=== PATIENT | male | born 1945 | race Caucasian/White ===

== ENCOUNTER 2017-06-04 13:20 | Emergency (ER) | payer MEDICARE, BC, SELFPAY | END 2017-06-04 16:37 | disposition home or self-care (01) | PROVIDERS: Emergency Provider Emergency Medicine; Family Provider Internal Medicine Pulmonary Disease; PCP Family Medicine; Visit Provider Emergency Medicine | DX: J44.1 Chronic obstructive pulmonary disease with (acute) exacerbation (principal) | CPT/HCPCS: 71020; 71046; 80053; 83880; 84484; 85025; 85610; 85730; 93005; 93010; 94640; 94644; 96374; 99058; 99285; J2930 ==

== ENCOUNTER → 2017-12-07 09:11 | Outpatient (CLI) | payer MEDICARE, BC, SELFPAY ==
[2017-12-07 10:37] LABS: Alanine Aminotransferase 48 IU/L (21-72); Albumin 4.5 g/dL (3.5-5.0); Albumin Globulin Ratio 1.8 (1.0-2.8); Alkaline Phosphatase 86 U/L (38-126); Aspartate Aminotransferase 32 IU/L (17-59); BUN Creatinine Ratio 12.5 (6-22); Bilirubin Total 0.6 mg/dL (0.2-1.3); Blood Urea Nitrogen 10 mg/dL (9-20); Carbon Dioxide 33 mmol/L (22-32); Chloride 98 mmol/L (98-107); Estimated Glomerular Filt Rate > 60.0 mL/min (>60); Globulin 2.5 g/dL (1.7-4.1); Glucose 110 mg/dL (80-110); HEMOLYSIS < 15 (0-50); Potassium 4.9 mmol/L (3.4-5.1); Sodium 141 mmol/L (137-145)
[2017-12-12 09:28] LABS: Lipoprofile NMR SEE SEPERATE REPORT
== END ==
PROVIDERS: Family Provider Student in an Organized Health Care Education/Training Program; PCP Student in an Organized Health Care Education/Training Program; Visit Provider Specialist
DX: E78.2 Mixed hyperlipidemia (principal); I10 Essential (primary) hypertension
CPT/HCPCS: 36415; 80053; 83704; 83735

== ENCOUNTER 2018-05-22 09:25 | Emergency (ER) | payer MEDICARE, BC, SELFPAY ==
[2018-05-22 09:27] VITALS: BP 161/85; PULSE 63; RESP 18; TEMP 37.2; O2SAT 97; BMI 60.3
--- NOTE | 2018-05-22 09:36 | ED.LOWEXIN ---
HPI - Extremity Injury (Lower) General Chief Complaint: Extremity Problem,Nontraumatic Stated Complaint: He Thinks he broke his right foot.. Time Seen by Provider: 05/22/18 09:28 Source: patient Mode of arrival: wheelchair Limitations: no limitations History of Present Illness HPI Narrative: Patient is a 73-year-old male. 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 Has regained all function however does have muscle weakness on the right side. 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 Is here because he has pain in his right foot. No specific trauma. He states that it started hurting 3 days ago. Spent most of the day on Tuesday in bed. Worsened yesterday. States that it hurts when he stands and walks. Cannot specifically pinpoint a location where he is having the pain but does point to the arch of his foot. Related Data Home Medications Medication Instructions Recorded Confirmed atorvastatin [Lipitor] 40 mg PO #0 08/23/12 07/19/17 clopidogrel [Plavix] 75 mg PO QDAY #0 08/23/12 07/19/17 ezetimibe [Zetia] 10 mg PO QDAY #0 08/23/12 07/19/17 hydrochlorothiazide 25 mg PO QDAY #0 08/23/12 07/19/17 carvedilol [Coreg] 25 mg PO BID #0 05/13/16 07/19/17 cholecalciferol (vitamin D3) 2,000 unit PO QDAY #0 05/13/16 07/19/17 [Vitamin D3] Previous Rx's Medication Instructions Recorded fluticasone propion-salmeterol 1 puff INH BID #3 pac 10/17/12 [Advair Diskus] prednisone 50 mg PO AMCC 5 Days #0 tab 06/04/17 zolpidem 10 mg tablet 10 mg PO HSP PRN #30 tab 05/19/18 cyclobenzaprine 10 mg PO TID PRN #12 tab 05/22/18 meloxicam [Mobic] 15 mg PO DAILY PRN #20 tab 05/22/18 Allergies Allergy/AdvReac Type Severity Reaction Status Date / Time No Known Drug Allergies Allergy Verified 07/19/17 13:59 Review of Systems Constitutional Denies fever(s) Cardiovascular Denies chest pain and Denies dyspnea Respiratory Denies dyspnea Musculoskeletal Comments: Right foot pain Integumentary/Breasts Denies rash Neurologic Comments: No change in neurologic status Hematologic/Lymphatic Denies easy bleeding and Denies easy bruising [facility] Medical History Coronary artery disease involving [place] coronary artery of pen[place]ot heart without angina pectoris (Chronic 05/13/16) Essential hypertension (Chronic 05/13/16) Moderate persistent asthma without complication (Chronic 05/13/16) Primary insomnia (Chronic 05/13/16) Pure hypercholesterolemia (Chronic 05/13/16) Allergy (Chronic 1994) Arthritis (Chronic Unknown) Asthma (Chronic 1994) BPH (benign prostatic hyperplasia) (Chronic Unknown) Carotid artery disease (Chronic 2007) Coronary artery disease (Chronic 1999) Hearing loss (Chronic Unknown) Hyperlipemia (Chronic Unknown) Hypertension (Chronic Unknown) Chickenpox (Resolved Unknown) Measles (Resolved Unknown) Mumps (Resolved 1995) Myocardial infarct (Resolved 1999) Polio (Resolved 1946) Rheumatic fever (Resolved Unknown) Social History Smoking Status: Former smoker Exam Initial Vital Signs Initial Vital Signs: Vital Signs Temperature 99.0 F 05/22/18 09:27 Pulse Rate 63 05/22/18 09:27 Respiratory Rate 18 05/22/18 09:27 Blood Pressure 161/85 H 05/22/18 09:27 Pulse Oximetry 97 05/22/18 09:27 Const General: cooperative, comfortable, well developed, well groomed and No acute distress Orientation: alert, awake and oriented x3 Cardio Pulses: dorsalis pedis present on the right Skin Other: A well-healed surgical scar over the arch of the right foot without surrounding erythema Neuro Other: Sensation intact to light touch right lower extremity Extrem Other: No specific tenderness around the right foot. Is able to flex and extend his ankle without any discomfort. Psych Appearance: grossly normal and well kempt Course Orders Ordered: ED Orders 05/22/18 09:35 XR foot RT min 3V Stat Vital Signs - 8 hr 05/22/18 09:27 Temperature 99.0 F Pulse Rate 63 Respiratory Rate 18 Blood Pressure 161/85 H Pulse Oximetry 97 MDM - Extremity Injury (Lower) Imaging Data X-ray foot: Radiologist's impression: Signed Patient: Salvatore Jacob BMR#: [id number] : 5Acct:[id number] Age/Sex: 73 / MDate of Service: 05/22/18 Loc: ED Accession Number: [id number] Procedure: XR foot RT min 3V Ordering Provider: Timur Palmer D.O. PROCEDURE: XR FOOT RT MIN 3V INDICATIONS: pain over arch had muscle transplant as a kid TECHNIQUE: 3 views of the foot were acquired. COMPARISON: [facility], , CHEST 2 VIEW, 06/04/2017, 13:36. FINDINGS: Bones: No fractures or dislocations. No suspicious bony lesions. Soft tissues: No tibiotalar joint effusion. Achilles tendon appears normal in thickness. IMPRESSION: Unremarkable right foot radiographs. No fractures. Dictated by: Parag Montana M.D. on 05/22/2018 at 8:54 Approved by: Parag Montana M.D. on 05/22/2018 at 8:55 MDM Narrative Medical decision making narrative: No fractures on the x-ray. There is no signs of infection. Patient has no change to his neurologic status. He has good DP pulses and capillary refill. He states that as he moves his ankle back in forth the symptoms seemed to improve. They are worse 1st thing in the morning. I suspect that this is either a muscle spasm or plantar fasciitis. I did discuss this with the patient. We did discuss treatment and return precautions. He will contact his primary doctor. He expressed understanding and agreement plan. Discharge Plan Departure Patient Disposition: Home Clinical Impression: Acute foot pain Qualifiers: Laterality: right Qualified Code(s): M79.671 - Pain in right foot Instructions: DI for Plantar Fasciitis Activity Restrictions/Additional Instructions: Recommend that you stretcher foot after he had been sitting for an extended period of time or 1st thing in the morning before you get up like we discussed. I do recommend that you contact her primary doctor to establish care. Take the medications as directed as needed. Return to the emergency department for any new or worsening symptoms Prescriptions: New cyclobenzaprine 10 mg tablet 10 mg PO TID PRN (Reason: muscle spasm) Qty: 12 RF: 0 meloxicam [Mobic] 15 mg tablet 15 mg PO DAILY PRN (Reason: muscle pain) Qty: 20 RF: 0 No Action atorvastatin [Lipitor] 40 MG tablet 40 mg PO Qty: 0 RF: 0 clopidogrel [Plavix] 75 MG tablet 75 mg PO QDAY Qty: 0 RF: 0 hydrochlorothiazide 25 MG tablet 25 mg PO QDAY Qty: 0 RF: 0 ezetimibe [Zetia] 10 MG tablet 10 mg PO QDAY Qty: 0 RF: 0 fluticasone propion-salmeterol [Advair Diskus] 250 MCG/50 MCG blister with device 1 puff INH BID Qty: 3 RF: 3 carvedilol [Coreg] 25 MG tablet 25 mg PO BID Qty: 0 RF: 0 cholecalciferol (vitamin D3) [Vitamin D3] 2,000 UNIT capsule 2,000 unit PO QDAY Qty: 0 RF: 0 prednisone 50 MG tablet 50 mg PO AMCC 5 Days Qty: 0 RF: 0 zolpidem [Ambien] 10 mg tablet 10 mg PO HSP PRN (Reason: insomnia) Qty: 30 RF: 5 Referrals: Farhad Estrada MD [Primary Care Provider] -
[2018-05-22 10:36] VITALS: BP 126/69; PULSE 61; RESP 15; O2SAT 97
== END 2018-05-22 10:38 | disposition home or self-care (01) ==
PROVIDERS: Emergency Provider Emergency Medicine; Family Provider Student in an Organized Health Care Education/Training Program; PCP Student in an Organized Health Care Education/Training Program
DX: M79.671 Pain in right foot (principal)
CPT/HCPCS: 73630; 99283

== ENCOUNTER → 2018-05-23 14:29 | Outpatient (CLI) | payer MEDICARE, BC, SELFPAY ==
[2018-05-23 15:08] LABS: Add Manual Diff / Slide Review NO; Basophils Absolute Auto 100 /uL (0-100); Basophils Percent Auto 1.2 % (0-2); Eosinophils Absolute Auto 1400 /uL (0-450); Hematocrit 38.8 % (41-53); Hemoglobin 13.5 g/dL (13.5-17.5); Lymphocytes Absolute Auto 1600 /uL (1100-4500); Lymphocytes Percent Auto 17.9 % (25-40); Mean Corpuscular HGB Conc 34.9 % (30-36); Mean Corpuscular Hemoglobin 30.3 PG (26-34); Monocytes Absolute Auto 1000 /uL (0-900); Monocytes Percent Auto 10.6 % (3-14); Neutrophils Absolute Auto 5000 /uL (1500-7000); Neutrophils Percent Auto 55.3 % (50-75); Platelet Count 290 X10^3/uL (150-400); Red Blood Cell Count 4.46 X10^6/uL (4.5-5.9); Red Cell Distribution Width 13.3 % (11.6-14.8); White Blood Cell Count 9.1 X10^3/uL (4.5-11.0)
[2018-05-23 15:39] LABS: C-Reactive Protein Quant 4.1 mg/dL (<1.0); Uric Acid 7.2 mg/dL (3.5-8.5)
[2018-05-23 15:40] LABS: Erythrocyte Sedimentation Rate 56 MM/HR (0-15)
[2018-05-23 15:56] LABS: Procalcitonin < 0.05 ng/mL (<0.5)
== END ==
PROVIDERS: Family Provider Student in an Organized Health Care Education/Training Program; PCP Student in an Organized Health Care Education/Training Program; Visit Provider Registered Nurse
DX: M79.671 Pain in right foot (principal); M79.89 Other specified soft tissue disorders
CPT/HCPCS: 36415; 84145; 84550; 85025; 85651; 86140

== ENCOUNTER → 2018-05-24 14:50 | Outpatient (CLI) | payer MEDICARE, BC, SELFPAY ==
--- NOTE | 2018-05-24 14:53 | DI.MRI.S_ITS ---
PROCEDURE: MR FOOT RT WO/W CON INDICATIONS: Right foot pain TECHNIQUE: Noncontrast sagittal T1 spin echo and T2 fast spin echo with fat saturation, long-axis T1 spin echo and T2 fast spin echo with fat saturation; short-axis T1 spin echo, proton density fast spin echo, and T2 fast spin echo with fat saturation through the forefoot. Post-contrast short axis, long axis, and sagittal T1 spin echo with fat saturation through the forefoot. COMPARISON: None. FINDINGS: Image quality: Excellent. Bones and joints: No suspicious osseous enhancement. Subtle marrow edema involving plantar aspect of medial cuneiform and talus is seen with no discrete fracture line that likely represent mild stress reaction. No other area of abnormal marrow signal. No fracture or dislocation. The sesamoid bones appear in expected positions, without internal edema. Mild osteoarthritic changes throughout mid foot and forefoot joints are seen. No intraosseous lesions. Soft tissues: No suspicious soft tissue enhancement. The visualized plantar foot muscles demonstrate mild heterogeneous internal fluid signals suggestive of muscle strain versus myositis. Mild intramuscular enhancement is seen. Visualized flexor and extensor tendons appear intact, without tenosynovitis. The distal insertions of the peroneus brevis and longus tendons appear intact. The principal Lisfranc ligament appears intact. No soft tissue ganglion cysts or bursal fluid collections. Sagittal images demonstrate no evidence for plantar plate tears. IMPRESSION: 1. Finding is suggestive of low-grade strain versus myositis involving plantar foot muscles. No intramuscular soft tissue mass or fluid collection. 2. Suggestion of mild stress reaction versus contusion involving plantar aspect of medial cuneiform and navicular bone. No fracture or dislocation. 3. Plantar aponeurosis is intact. Dictated by: Gucci Patiño M.D. on 05/24/2018 at 16:38 Approved by: Gucci Patiño M.D. on 05/24/2018 at 16:44
== END ==
PROVIDERS: Family Provider Student in an Organized Health Care Education/Training Program; PCP Student in an Organized Health Care Education/Training Program; Visit Provider Registered Nurse
DX: M79.671 Pain in right foot (principal); M79.89 Other specified soft tissue disorders
CPT/HCPCS: 73720; A9579

== ENCOUNTER → 2018-06-07 07:32 | Outpatient (CLI) | payer MEDICARE, BC, SELFPAY ==
[2018-06-07 09:20] LABS: Alanine Aminotransferase 33 IU/L (21-72); Albumin 3.9 g/dL (3.5-5.0); Albumin Globulin Ratio 1.5 (1.0-2.8); Alkaline Phosphatase 109 U/L (38-126); Aspartate Aminotransferase 19 IU/L (17-59); BUN Creatinine Ratio 16.3 (6-22); Bilirubin Total 0.5 mg/dL (0.2-1.3); Blood Urea Nitrogen 13 mg/dL (9-20); Calcium 9.1 mg/dL (8.4-10.2); Carbon Dioxide 30 mmol/L (22-32); Chloride 96 mmol/L (98-107); Estimated Glomerular Filt Rate > 60.0 mL/min (>60); Globulin 2.6 g/dL (1.7-4.1); Glucose 137 mg/dL (80-110); HEMOLYSIS < 15 (0-50); Magnesium 2.4 mg/dL (1.6-2.3); Potassium 3.8 mmol/L (3.4-5.1); Sodium 134 mmol/L (137-145); Total Protein 6.5 g/dL (6.3-8.2)
[2018-06-12 13:13] LABS: Lipoprofile NMR SEE SEPERATE REPORT
== END ==
PROVIDERS: Family Provider Student in an Organized Health Care Education/Training Program; PCP Student in an Organized Health Care Education/Training Program; Visit Provider Specialist
DX: E78.2 Mixed hyperlipidemia (principal); I10 Essential (primary) hypertension
CPT/HCPCS: 36415; 80053; 83704; 83735

== ENCOUNTER → 2019-03-08 13:48 | Outpatient (CLI) | payer MEDICARE, BC, SELFPAY ==
--- NOTE | 2019-03-08 13:51 | DI.US.S_ITS ---
PROCEDURE: US CAROTID DOPPLER BI INDICATIONS: CAROTID STENOSIS TECHNIQUE: Color and pulse Doppler interrogation was performed of both carotid systems, with image documentation and velocity measurements. COMPARISON: [facility], , CAROTID ARTERY DOPPLER BILAT, 09/09/2014, 13:24. [facility], , CAROTID ARTERY DOPPLER BILAT, 03/10/2016, 13:42. FINDINGS: Stenosis calculations are based on SRU (Society of Radiologists in Ultrasound) criteria. Right side: Brachial blood pressure: 141/73 mm Hg. Common carotid artery peak systolic velocity: 86 cm/sec (prior 79 cm/s). Internal carotid artery peak systolic velocity: 122 cm/sec (prior 86 cm/s). Internal carotid artery end diastolic velocity: 22 cm/sec (prior 21 cm/s). External carotid artery peak systolic velocity: 110 cm/sec (prior 105 cm/s). ICA/CCA peak systolic ratio: 1.42 (prior 1.08). Solomon scale imaging description: Moderate atherosclerotic changes are seen, including shadowing calcification. Percent internal carotid artery stenosis: Less than 50% by velocity criteria. Vertebral artery: Flow direction is antegrade. Left side: Brachial blood pressure: 141/71 mm Hg. Common carotid artery peak systolic velocity: 104 cm/sec (prior 106 cm/s). Internal carotid artery peak systolic velocity: 172 cm/sec (prior 127 cm/s). Internal carotid artery end diastolic velocity: 27 cm/sec (prior 31 cm/s). External carotid artery peak systolic velocity: 174 cm/sec (prior 115 cm/s). ICA/CCA peak systolic ratio: 1.66 (prior 1.19). Solomon scale imaging description: Moderate atherosclerotic changes can be seen. Shadowing calcification can also be seen. Percent internal carotid artery stenosis: 50-69% by velocity criteria Vertebral artery: Flow direction is antegrade. IMPRESSION: By velocity criteria, there is a moderate stenosis (between 50 and 69% stenosis) within the left proximal internal carotid artery. The true degree of stenosis is felt most likely to be at the lower end of this range. The estimated degree of stenosis has progressed compared to 2017. Dictated by: Valerio Reid M.D. on 03/08/2019 at 16:11 Approved by: Valerio Reid M.D. on 03/08/2019 at 16:14
== END ==
PROVIDERS: Family Provider Student in an Organized Health Care Education/Training Program; PCP Student in an Organized Health Care Education/Training Program; Visit Provider Specialist
DX: I65.23 Occlusion and stenosis of bilateral carotid arteries (principal); Z87.891 Personal history of nicotine dependence; Z98.890 Other specified postprocedural states
CPT/HCPCS: 93880

== ENCOUNTER → 2019-03-09 07:22 | Outpatient (CLI) | payer MEDICARE, BC, SELFPAY ==
[2019-03-09 08:43] LABS: Alanine Aminotransferase 22 IU/L (<50); Albumin 4.1 g/dL (3.5-5.0); Albumin Globulin Ratio 1.6 (1.0-2.8); Alkaline Phosphatase 106 U/L (38-126); Aspartate Aminotransferase 27 IU/L (17-59); BUN Creatinine Ratio 16.3 (6-22); Bilirubin Total 0.5 mg/dL (0.2-1.3); Blood Urea Nitrogen 13 mg/dL (9-20); Calcium 9.5 mg/dL (8.4-10.2); Carbon Dioxide 28 mmol/L (22-32); Chloride 95 mmol/L (98-107); Estimated Glomerular Filt Rate > 60.0 mL/min (>60); Globulin 2.5 g/dL (1.7-4.1); Glucose 102 mg/dL (80-110); HEMOLYSIS < 15 (0-50); Magnesium 2.3 mg/dL (1.6-2.3); Potassium 4.3 mmol/L (3.4-5.1); Sodium 132 mmol/L (137-145); Total Protein 6.6 g/dL (6.3-8.2)
[2019-03-12 11:23] LABS: Lipoprofile NMR SEE SEPERATE REPORT
== END ==
PROVIDERS: Family Provider Student in an Organized Health Care Education/Training Program; PCP Student in an Organized Health Care Education/Training Program; Visit Provider Specialist
DX: E78.2 Mixed hyperlipidemia (principal); I10 Essential (primary) hypertension
CPT/HCPCS: 36415; 80053; 83704; 83735

== ENCOUNTER → 2020-02-21 14:48 | Outpatient (CLI) | payer MEDICARE, BC, SELFPAY ==
--- NOTE | 2020-02-21 14:51 | DI.RAD.S_ITS ---
PROCEDURE: XR HAND LT 2V INDICATIONS: Evaluate probable inflammatory arthropathy TECHNIQUE: To views of the hand(s) acquired. COMPARISON: None. FINDINGS: Bones: No fractures or dislocations. Carpal bones are normally aligned. No suspicious bony lesions. Severe OA at the 1st carpometacarpal joint, and mild OA at the triscaphe joint and multiple interphalangeal joints. Soft tissues: No suspicious soft tissue calcifications. Mild generalized soft tissue swelling. IMPRESSION: Severe osteoarthritic changes at the 1st carpometacarpal joint. No bony erosion or periarticular osteopenia. Dictated by: Lavern Sung M.D. on 02/21/2020 at 17:08 Approved by: Lavern Sung M.D. on 02/21/2020 at 17:09
--- NOTE | 2020-02-21 14:51 | DI.RAD.S_ITS ---
PROCEDURE: XR WRIST LT 2V INDICATIONS: Evaluate probable inflammatory arthropathy TECHNIQUE: 2 views of the wrist were acquired. COMPARISON: None. FINDINGS: Bones: No fractures or dislocations. No suspicious bony lesions. There is severe foot carpometacarpal joint degeneration. Mild degeneration of the radiocarpal joint and triscaphe joint. No bony erosion or periarticular osteopenia. Soft tissues: No suspicious soft tissue calcifications. IMPRESSION: Severe osteoarthritic changes at the 1st carpometacarpal joint. No bony erosion or periarticular osteopenia. Dictated by: Lavern Sung M.D. on 02/21/2020 at 17:09 Approved by: Lavern Sung M.D. on 02/21/2020 at 17:11
[2020-02-21 15:42] LABS: Add Manual Diff / Slide Review NO; Basophils Absolute Auto 200 /uL (0-100); Basophils Percent Auto 1.5 % (0-2); Eosinophils Absolute Auto 2300 /uL (0-450); Eosinophils Percent Auto 21.3 % (2-4); Hematocrit 32.9 % (41-53); Hemoglobin 11.6 g/dL (13.5-17.5); Lymphocytes Absolute Auto 1200 /uL (1100-4500); Lymphocytes Percent Auto 11.3 % (25-40); Mean Corpuscular HGB Conc 35.1 % (30-36); Mean Corpuscular Hemoglobin 29.3 PG (26-34); Mean Corpuscular Volume 83.4 fL (80-100); Monocytes Absolute Auto 700 /uL (0-900); Monocytes Percent Auto 6.7 % (3-14); Neutrophils Absolute Auto 6400 /uL (1500-7000); Neutrophils Percent Auto 59.2 % (50-75); Platelet Count 463 X10^3/uL (150-400); Red Blood Cell Count 3.94 X10^6/uL (4.5-5.9); Red Cell Distribution Width 12.9 % (11.6-14.8); White Blood Cell Count 10.8 X10^3/uL (4.5-11.0)
[2020-02-21 16:15] LABS: Alanine Aminotransferase 16 IU/L (<50); Albumin 4.2 g/dL (3.5-5.0); Albumin Globulin Ratio 1.4 (1.0-2.8); Alkaline Phosphatase 139 U/L (38-126); Aspartate Aminotransferase 27 IU/L (17-59); BUN Creatinine Ratio 11.5 (6-22); Bilirubin Total 0.2 mg/dL (0.2-1.3); Blood Urea Nitrogen 6 mg/dL (9-20); C-Reactive Protein Quant 1.2 mg/dL (<1.0); Calcium 9.3 mg/dL (8.4-10.2); Carbon Dioxide 28 mmol/L (22-32); Chloride 89 mmol/L (98-107); Estimated Glomerular Filt Rate > 60.0 mL/min (>60); Glucose 117 mg/dL (80-110); HEMOLYSIS < 15 (0-50); Potassium 3.9 mmol/L (3.4-5.1); Sodium 123 mmol/L (137-145); Total Protein 7.2 g/dL (6.3-8.2)
[2020-02-21 16:17] LABS: Rheumatoid Factor < 8.6 IU/mL (<12.0)
[2020-02-21 17:13] LABS: Erythrocyte Sedimentation Rate 52 MM/HR (0-15)
[2020-02-23 15:11] LABS: ANA Screen, IFA Negative (.)
== END ==
PROVIDERS: Family Provider Student in an Organized Health Care Education/Training Program; PCP Student in an Organized Health Care Education/Training Program; Referring Provider Student in an Organized Health Care Education/Training Program; Visit Provider Student in an Organized Health Care Education/Training Program
DX: I10 Essential (primary) hypertension (principal); E78.00 Pure hypercholesterolemia, unspecified; I25.10 Atherosclerotic heart disease of native coronary artery without angina pectoris; Z79.899 Other long term (current) drug therapy; M06.4 Inflammatory polyarthropathy
CPT/HCPCS: 36415; 73100; 73120; 80053; 85025; 85651; 86038; 86140; 86430

== ENCOUNTER → 2020-03-11 10:09 | Outpatient (CLI) | payer MEDICARE, BC, SELFPAY ==
[2020-03-11 11:07] LABS: Hematocrit 34.6 % (41-53); Hemoglobin 11.3 g/dL (13.5-17.5); Mean Corpuscular HGB Conc 32.5 % (30-36); Mean Corpuscular Hemoglobin 28.8 PG (26-34); Mean Corpuscular Volume 88.5 fL (80-100); Platelet Count 308 X10^3/uL (150-400); Red Blood Cell Count 3.91 X10^6/uL (4.5-5.9); Red Cell Distribution Width 15.5 % (11.6-14.8); White Blood Cell Count 9.3 X10^3/uL (4.5-11.0)
[2020-03-11 11:44] LABS: BUN Creatinine Ratio 10.8 (6-22); Blood Urea Nitrogen 7 mg/dL (9-20); Calcium 8.9 mg/dL (8.4-10.2); Carbon Dioxide 26 mmol/L (22-32); Chloride 99 mmol/L (98-107); Creatine Kinase 71 U/L (55-170); Estimated Glomerular Filt Rate > 60.0 mL/min (>60); Glucose 157 mg/dL (80-110); HEMOLYSIS < 15 (0-50); Potassium 3.9 mmol/L (3.4-5.1); Sodium 130 mmol/L (137-145)
[2020-03-11 11:55] LABS: Troponin I < 0.012 ng/mL (0.01-0.034)
[2020-03-11 12:05] LABS: Neutrophils Absolute Manual 6324 /uL (3000-5900); Total Cells Counted 100
[2020-03-11 12:08] LABS: Ovalocytes 1+
[2020-03-11 12:09] LABS: Sodium Urine Random 61 mmol/L (30-90)
[2020-03-11 12:10] LABS: Burr Cells 1+
[2020-03-11 12:12] LABS: Anisocytosis 1+; Platelet Estimate Adequate on smear
[2020-03-12 15:28] LABS: Osmolality Urine 275 mOsmol/kg (.); Osmolality, Serum 278 mOsmol/kg (280-301)
== END ==
PROVIDERS: Family Provider Student in an Organized Health Care Education/Training Program; PCP Student in an Organized Health Care Education/Training Program; Referring Provider Student in an Organized Health Care Education/Training Program; Visit Provider Student in an Organized Health Care Education/Training Program
DX: D72.10 Eosinophilia, unspecified (principal); E87.1 Hypo-osmolality and hyponatremia
CPT/HCPCS: 36415; 80048; 82550; 83930; 83935; 84300; 84484; 85025

== ENCOUNTER → 2020-05-20 07:11 | Outpatient (CLI) | payer MEDICARE, BC, SELFPAY ==
[2020-05-20 08:32] LABS: Alanine Aminotransferase 14 IU/L (<50); Albumin 4.1 g/dL (3.5-5.0); Albumin Globulin Ratio 1.4 (1.0-2.8); Alkaline Phosphatase 117 U/L (38-126); Aspartate Aminotransferase 20 IU/L (17-59); BUN Creatinine Ratio 13.8 (6-22); Bilirubin Total 0.2 mg/dL (0.2-1.3); Blood Urea Nitrogen 9 mg/dL (9-20); Calcium 9.4 mg/dL (8.4-10.2); Carbon Dioxide 26 mmol/L (22-32); Chloride 100 mmol/L (98-107); Estimated Glomerular Filt Rate > 60.0 mL/min (>60); Globulin 2.9 g/dL (1.7-4.1); Glucose 114 mg/dL (80-110); HEMOLYSIS < 15 (0-50); Magnesium 2.2 mg/dL (1.6-2.3); Potassium 4.2 mmol/L (3.4-5.1); Sodium 134 mmol/L (137-145)
[2020-05-22 07:56] LABS: Cholesterol, Total 112 mg/dL (100-199); HDL-Cholesterol 53 mg/dL (>39); HDL-Particle (Total) 31.1 umol/L (>=30.5); Historical Reading Comment: (.); LDL Particle 400 nmol/L (<1000); LDL Size 20.8 nm (>20.5); LDL-Cholsterol 45 mg/dL (0-99); LP-IR Score 29 (<=45); Small LDL- Particle <90 nmol/L (<=527); Triglycerides 68 mg/dL (0-149)
== END ==
PROVIDERS: Family Provider Student in an Organized Health Care Education/Training Program; PCP Student in an Organized Health Care Education/Training Program; Referring Provider Specialist; Visit Provider Specialist
DX: I10 Essential (primary) hypertension (principal); E78.2 Mixed hyperlipidemia
CPT/HCPCS: 36415; 80053; 80061; 83704; 83735

== ENCOUNTER → 2020-06-02 13:26 | Outpatient (CLI) | payer MEDICARE, BC, SELFPAY ==
--- NOTE | 2020-06-02 13:28 | DI.ECHO.S_ITS ---
[place] [facility]---------+ [facility] +---------+ : : [address] : [place] [address] : : : : [id number] : : : : Phone: [phone]+ Echocardiogram Report + + :Name: AGUILAR WHITLEY Study Date: 06/02/2020 Height: 67 in : :[facility] ReadingLocation: Weight: 175 lb : : Gender: Male BSA: 1.9 m2 : :: 1945 Age: 75 yrs BP: 157/82 mmHg: :Reason For Study: Cardiomyopathy : :Ordering Physician: Art : :Whitney Soler Performed By: Nehemias Venegas : :Referring: ART SOLER : + + Interpretation Summary Left ventricular systolic function appears normal with an estimated ejection fraction of 60 to 65% without any focal wall motion abnormality. Left ventricular size and wall thickness appear normal. While diastolic function cannot be accurately assessed, there is no compelling evidence for increased filling pressures. The right ventricle appears normal. Right ventricular systolic pressure cannot be estimated but CVP is likely around 3 mmHg. The left atrium is mildly enlarged. There is mild aortic valve sclerosis without stenosis but no significant valvular abnormality. The ascending aorta is mildly enlarged. Procedure: A two-dimensional transthoracic echocardiogram with color flow and Doppler was performed. The study quality was technically adequate. There is no prior echocardiogram noted for this patient. The patient was in sinus rhythm with heart rates between 51-55 bpm during the exam. Left Ventricle: The left ventricle appears normal in size, wall thickness, and systolic function without any focal wall motion abnormalities. The estimated left ventricular end diastolic volume is 78 ml. The ejection fraction is estimated to be 60-65%. Diastolic function could not be accurately assessed due to contradictory data. Right Ventricle: The right ventricle is normal in size and function. Atria: The left atrium is mildly dilated. Right atrial size is normal. There is no Doppler evidence for an interatrial shunt. Mitral Valve: There is mild mitral annular calcification. The mitral valve leaflets appear mildly thickened, but open well. There is trace mitral regurgitation. Aortic Valve: The aortic valve is trileaflet. There is mild aortic valve sclerosis. The aortic valve is mildly calcified. There is discrete nodular thickening of the non- coronary cusp. There is minimally reduced leaflet mobility. There is no aortic valve stenosis. No aortic regurgitation is present. Tricuspid Valve: The tricuspid valve is normal in structure and function. There is a trace or physiologic amount of tricuspid regurgitation. Pulmonary artery pressures cannot be estimated because of the lack of a measurable TR jet velocity but the IVC suggests a CVP of around 3 mmHg. Pulmonic Valve: The pulmonic valve is normal in structure and function. There is no pulmonic valvular regurgitation. Great Vessels: The aortic root is normal size. The ascending aorta is mildly enlarged. The IVC is of normal diameter and collapses greater than 50% with a sniff. This suggests a low right atrial pressure of 3 mm Hg. Pericardium/ Pleura There is no pericardial effusion. There is no pleural effusion. MMode/2D Measurements & Calculations LVIDd: 5.0 cm LVOT diam: 2.3 cm LVIDs: 3.4 cm Ao root diam: 3.6 cm FS: 31.3 % asc Aorta Diam: 3.8 cm IVSd: 1.0 cm LVPWd: 0.93 cm LV rubio. diameter/BSA (cm/m^2): 2.6 LV sys. diameter/BSA (cm/m^2): 1.8 LA A2 area: 20.9 cm2 RA area: 17.9 cm2 LA A4 area: 22.5 cm2 IVC diam: 2.0 cm LA length (vol): 5.6 cm LA vol: 70.9 ml LA vol index: 37.1 ml/m2 TAPSE: 2.9 cm Doppler Measurements & Calculations Ao V2 max: 184.5 cm/sec LVOT Max Mane: 104.6 cm/sec Ao V2 mean: 123.6 cm/sec LV V1 max P.4 mmHg Ao max P.6 mmHg LV V1 VTI: 27.0 cm Ao mean P.9 mmHg KATHARINE(I,D): 2.7 cm2 Ao V2 VTI: 43.9 cm KATHARINE(V,D): 2.4 cm2 sev ratio: 0.62 KATHARINE indexed to BSA (cm^2/m^2): 1.4 MV E max mane: 72.1 cm/sec PA V2 max: 108.5 cm/sec MV A max mane: 78.4 cm/sec PA V2 mean: 80.1 cm/sec MV E/A: 0.92 PA mean P.8 mmHg Med Peak E' Mane: 5.8 cm/sec PA pr(Accel): 33.3 mmHg E/E' med: 12.4 Lat Peak E' Mane: 9.4 cm/sec E/E' lat: 7.7 E/e' average: 10.1 MV dec time: 0.22 sec SV(LVOT): 116.5 ml Reading Physician:10:02 AM
== END ==
PROVIDERS: Family Provider Student in an Organized Health Care Education/Training Program; PCP Student in an Organized Health Care Education/Training Program; Referring Provider Specialist; Visit Provider Specialist
DX: I77.89 Other specified disorders of arteries and arterioles (principal); I35.8 Other nonrheumatic aortic valve disorders; I42.9 Cardiomyopathy, unspecified; Z91.89 Other specified personal risk factors, not elsewhere classified
CPT/HCPCS: 93306

== ENCOUNTER 2020-07-05 02:01 | Observation (INO) | payer MEDICARE, BC, SELFPAY ==
--- NOTE | 2020-07-05 02:02 | ED_ITS ---
HPI - Altered Mental Status General Chief Complaint: Altered Mental Status Stated Complaint: Confused Time Seen by Provider: 07/05/20 02:02 Source: patient and EMS Mode of arrival: EMS Limitations: altered mental status History of Present Illness HPI narrative: 75-year-old male former smoker with history of COPD, coronary artery disease, hypertension, asthma presents by EMS for confusion and altered mental status. Patient apparently had a good day yesterday was in his normal state of health even when he went to bed at about 8:30 p.m.. His states that she woke up at about 2 or 3 this morning and found him acting ?goofy? and he was slurring his words and not making sense. EMS was activated he was broug ht in for evaluation. Given the time frame and presentation he was not activated as a code stroke. He denies any change in medications or recent injury or trauma. Related Data Home Medications Medication Instructions Recorded Confirmed atorvastatin [Lipitor] 40 mg PO #0 08/23/12 02/21/20 clopidogrel [Plavix] 75 mg PO QDAY #0 08/23/12 02/21/20 ezetimibe [Zetia] 10 mg PO QDAY #0 08/23/12 02/21/20 amlodipine 10 mg tablet 10 mg PO DAILY 11/01/18 02/21/20 aspirin 81 mg tablet,delayed 81 mg PO DAILY 11/01/18 02/21/20 release beclomethasone dipropionate 40 1 puff INHALATION BID 11/01/18 02/21/20 mcg/actuation HFA breath activated aerosol fluticasone 250 mcg-salmeterol 50 1 inhalation INHALATION BID 11/01/18 02/21/20 mcg/dose blistr powdr for inhalation losartan 100 mg tablet 100 mg PO DAILY 11/01/18 02/21/20 metoprolol tartrate 100 mg tablet 100 mg PO BID tab 03/20/19 02/21/20 Previous Rx's Medication Instructions Recorded montelukast 10 mg tablet 10 mg PO QPM #90 tab 03/04/20 zolpidem 10 mg tablet 10 mg PO BEDTIME PRN #30 tab 03/25/20 Allergies Allergy/AdvReac Type Severity Reaction Status Date / Time hydrochlorothiazide AdvReac Mild Hyponatremi Verified 03/14/20 11:52 a Review of Systems Constitutional Constitutional: Denies chills, Denies fatigue, Denies fever(s), Denies frequent falls, Denies lethargy and Denies weakness Eyes Eyes: Denies change in vision, Denies eye discharge, Denies irritation and Denies loss of vision ENT Ears, Nose, Mouth, and Throat: Denies change in voice, Denies dizziness, Denies neck pain, Denies sore throat and Denies throat swelling Cardiovascular Cardiovascular: Denies chest pain, Denies irregular heart rhythm, Denies lightheadedness, Denies palpitations, Denies dyspnea, Denies dyspnea on exertion and Denies orthopnea Respiratory Respiratory: Denies cough, Denies dyspnea, Denies dyspnea on exertion and Denies wheezing Gastrointestinal Gastrointestinal: Denies abdominal pain, Denies change in bowel habits, Denies diarrhea, Denies nausea and Denies vomiting Musculoskeletal Musculoskeletal: Denies neck pain and Denies numbness Integumentary/Breasts Skin/Breast: Denies pruritus, Denies erythema, Denies rash and Denies wounds Neurologic Neurologic: Denies behavioral changes, Denies confusion, Denies dizziness, Denies frequent falls, Denies loss of vision, Denies numbness and Denies weakness Psychiatric Psychiatric: Denies anxiety, Denies behavioral changes, Denies confusion, Denies depression, Denies homicidal ideation and Denies suicidal ideation Endocrine Endocrine: Denies fatigue, Denies flushing and Denies palpitations Hematologic/Lymphatic Hematologic/Lymphatic: Denies easy bruising Allergic/Immunologic Allergic/Immunologic: Denies urticaria, Denies throat swelling and Denies wheezing Patient History Medical History (Updated 07/05/20 @ 04:21 by Kiran Roldan DO) Allergy (1994) Arthritis (Unknown) Asthma (1994) BPH (benign prostatic hyperplasia) (Unknown) Carotid artery disease (2007) Chickenpox (Unknown) Coronary artery disease (1999) Coronary artery disease involving minto coronary artery of minto heart without angina pectoris (05/13/16) Essential hypertension (05/13/16) Hearing loss (Unknown) Hyperlipemia (Unknown) Hypertension (Unknown) Measles (Unknown) Moderate persistent asthma without complication (05/13/16) Mumps (1995) Myocardial infarct (1999) Polio (1947) Primary insomnia (05/13/16) Pure hypercholesterolemia (05/13/16) Rheumatic fever (Unknown) Surgical History H/O esophagogastroduodenoscopy (2013) History of angioplasty History of angioplasty History of angioplasty Family History Father Hypertension Mother Hyperlipidemia Sister Age: 77 Hyperlipidemia Social History Smoking Status: Former smoker alcohol intake: never substance use type: does not use Smoking Status: Former smoker alcohol intake frequency: 0-2 drinks per day Substance Use Type: does not use Exam Narrative Exam Narrative: GENERAL: [75] year old patient appears stated age. Well- nourished, well-developed patient, in mild distress. He is confused, delivered and sluggish in his responses which are largely accurate. HEAD: Atraumatic. Normocephalic. EYES: Pupils equal round and reactive. Extraocular motions intact. No scleral icterus. No injection or drainage. ENT: Nose without bleeding, purulent drainage. Throat without erythema, tonsillar hypertrophy or exudate. Airway patent. NECK: Trachea midline. Non tender CARDIOVASCULAR: Regular rate and rhythm without murmurs, gallops, or rubs. RESPIRATORY: Clear to auscultation. Breath sounds equal bilaterally. No wheezes, rales, or rhonchi. GASTROINTESTINAL: Abdomen soft, non-tender, nondistended. EXTREMITIES: No edema or joint tenderness. BACK: Nontender without deformity or crepitance. No flank tenderness. NEURO: AOx3. SKIN: No rash or erythema of visible areas Initial Vital Signs Initial Vital Signs: Vital Signs Temperature 97.1 F L 07/05/20 02:07 Pulse Rate 60 07/05/20 02:07 Respiratory Rate 16 07/05/20 02:07 Blood Pressure 150/71 H 07/05/20 02:07 Pulse Oximetry 97 07/05/20 02:07 Scores NIH Stroke Scale Level of Conciousness: Alert, keenly responsive Ask month/age: Answers one question correctly, intubated follow commands Open/close eyes, close hand: Performs both tasks correctly Best gaze horizontal: Normal Visual neal: No visual loss Facial palsy: Minor paralysis, flattened nasolabial fold, asymmetry on smiling Left arm drift: No drift for full 10 sec Right arm drift: No drift for full 10 sec Left leg drift: No drift for full 5 sec Right leg drift: No drift for full 5 sec Limb ataxia: Present in one limb Sensory on face/arms/legs: Normal, no sensory loss Best language: No aphasia, normal Dysarthria: Mild to mod,some slurring Extinction or inattention: No abnormality Total NIH Stroke scale score: 4 Course Course Course Narrative: 0420 - at the bedside, he is doing much better, speech has cleared, no facial weakness, patient has full coordination of upper extremitie s. Patient will require hospitalization for further evaluation and stabilization of his condition Orders Ordered: ED Orders 07/05/20 01:50 Complete Blood Count AUTO DIFF Stat Comprehensive Metabolic Panel Stat Lipase Stat Magnesium Stat NT-proBNP (BNP-Adult 18+) Stat Prothrombin Time INR Stat Troponin & CK Cardiac Panel Stat 07/05/20 02:04 CT head/brain wo con Stat XR chest 1V Stat COVID19 - ADMIT (RETAIL LOSS PREVENTION OFFICER swab/PCR) Stat Urinalysis and Microscopic Stat 07/05/20 02:05 EKG-12 Lead Stat 07/05/20 02:25 Lactate (Lactic Acid) Stat 07/05/20 02:35 Blood Culture Stat Sodium Chloride (Normal Saline 0.9%) 1,000 mls @ 125 mls/hr IV CONT JULIAN Vital Signs Vital signs: Vital Signs - 8 hr 07/05/20 02:07 07/05/20 03:00 Temperature 97.1 F L Pulse Rate 60 60 Respiratory Rate 16 18 Blood Pressure 150/71 H 150/71 H Pulse Oximetry 97 96 MDM - Altered Mental Status Lab Data Result diagrams: 07/05/20 01:50 07/05/20 01:50 Labs: Lab Results 07/05/20 07/05/20 07/05/20 Range/Units 01:50 01:50 01:50 WBC 7.5 (4.5-11.0) X10^3/uL RBC 4.03 L (4.5-5.9) X10^6/uL Hgb 10.8 L (13.5-17.5) g/dL Hct 33.5 L (41-53) % MCV 83.3 (80-100) fL MCH 26.9 (26-34) PG MCHC 32.3 (30-36) % RDW 14.5 (11.6-14.8) % Plt Count 343 (150-400) X10^3/uL Neut % (Auto) 59.6 (50-75) % Lymph % (Auto) 17.8 L (25-40) % [place] % (Auto) 8.5 (3-14) % Eos % (Auto) 12.9 H (2-4) % Baso % (Auto) 1.2 (0-2) % Neut # (Auto) 4500 (4490-1837) /uL Lymph # (Auto) 1300 (8538-3140) /uL [place] # (Auto) 600 (0-900) /uL Eos # (Auto) 1000 H (0-450) /uL Baso # (Auto) 100 (0-100) /uL PT 11.6 (10.1-12.7) SECONDS INR 1.0 (0.9-1.3) Sodium 129 L (137-145) mmol/L Potassium 4.5 (3.4-5.1) mmol/L Chloride 96 L (98-107) mmol/L Carbon Dioxide 24 (22-32) mmol/L BUN 8 L (9-20) mg/dL Creatinine 0.67 (0.66-1.25) mg/dL Estimated GFR > 60.0 (>60) mL/min BUN/Creatinine Ratio 11.9 (6-22) Glucose 136 H (80-110) mg/dL Lactate (0.7-2.1) mmol/L Calcium 9.0 (8.4-10.2) mg/dL Magnesium (1.6-2.3) mg/dL Total Bilirubin 0.3 (0.2-1.3) mg/dL AST 29 (17-59) IU/L ALT 15 (<50) IU/L Alkaline Phosphatase 125 (38-126) U/L Total Creatine Kinase (55-170) U/L CK-MB (CK-2) (<2.37) ng/mL CK-MB (CK-2) Rel Index (1.5-5.0) % Troponin I (0.01-0.034) ng/mL NT-Pro-B Natriuret Pep (<450) pg/mL Total Protein 6.7 (6.3-8.2) g/dL Albumin 4.0 (3.5-5.0) g/dL Globulin 2.7 (1.7-4.1) g/dL Albumin/Globulin Ratio 1.5 (1.0-2.8) Lipase (23-300) U/L 07/05/20 07/05/20 Range/Units 01:50 02:25 WBC (4.5-11.0) X10^3/uL RBC (4.5-5.9) X10^6/uL Hgb (13.5-17.5) g/dL Hct (41-53) % MCV (80-100) fL MCH (26-34) PG MCHC (30-36) % RDW (11.6-14.8) % Plt Count (150-400) X10^3/uL Neut % (Auto) (50-75) % Lymph % (Auto) (25-40) % [place] % (Auto) (3-14) % Eos % (Auto) (2-4) % Baso % (Auto) (0-2) % Neut # (Auto) (2328-4715) /uL Lymph # (Auto) (5633-1114) /uL [place] # (Auto) (0-900) /uL Eos # (Auto) (0-450) /uL Baso # (Auto) (0-100) /uL PT (10.1-12.7) SECONDS INR (0.9-1.3) Sodium (137-145) mmol/L Potassium (3.4-5.1) mmol/L Chloride (98-107) mmol/L Carbon Dioxide (22-32) mmol/L BUN (9-20) mg/dL Creatinine (0.66-1.25) mg/dL Estimated GFR (>60) mL/min BUN/Creatinine Ratio (6-22) Glucose (80-110) mg/dL Lactate 1.3 (0.7-2.1) mmol/L Calcium (8.4-10.2) mg/dL Magnesium 1.8 (1.6-2.3) mg/dL Total Bilirubin (0.2-1.3) mg/dL AST (17-59) IU/L ALT (<50) IU/L Alkaline Phosphatase (38-126) U/L Total Creatine Kinase 111 (55-170) U/L CK-MB (CK-2) 2.09 (<2.37) ng/mL CK-MB (CK-2) Rel Index 1.9 (1.5-5.0) % Troponin I < 0.012 (0.01-0.034) ng/mL NT-Pro-B Natriuret Pep 136 (<450) pg/mL Total Protein (6.3-8.2) g/dL Albumin (3.5-5.0) g/dL Globulin (1.7-4.1) g/dL Albumin/Globulin Ratio (1.0-2.8) Lipase 237 (23-300) U/L Imaging Data CT scan - head: Radiologist's Impression: No bleed or stroke Discharge Plan Departure Patient Disposition: Admitted as Observation Clinical Impression: Brain TIA Admit Date/Time: 07/05/20 04:31 Admit Provider: Franca Ortiz
--- NOTE | 2020-07-05 02:04 | DI.CT.S_ITS ---
PROCEDURE: CT HEAD/BRAIN WO CON INDICATIONS: altered, confused TECHNIQUE: Noncontrast 4.5 mm thick angled axial sections acquired from the foramen magnum to the vertex, with coronal and sagittal reformats. For radiation dose reduction, the following was used: automated exposure control, adjustment of mA and/or kV according to patient size. COMPARISON: [facility], , [place] CAROTID DOPPLER BI, 03/08/2019, 14:37. [facility], EC, EC ECHO LIMITED, 07/05/2020, 10:28. [facility], MR, MR STROKE, 07/05/2020, 7:43. [facility], , [place] CAROTID DOPPLER BI, 07/05/2020, 9:01. FINDINGS: Image quality: Excellent. CSF spaces: Basal cisterns are patent. No extra-axial fluid collections. The ventricles are symmetric in size and shape. Brain: No intracranial bleeds or masses. There is cerebral volume loss for age, with resultant ventricular and sulcal prominence. There are periventricular and deep white matter chronic small vessel ischemic changes. There is intracranial internal carotid artery atherosclerosis. Skull and face: Calvarium and visualized facial bones appear intact, without suspicious lesions. Sinuses: Visualized sinuses and mastoids are clear. IMPRESSION: Normal noncontrast head CT. Note: No significant discrepancy from the preliminary report. Dictated by: Valerio Reid M.D. on 07/05/2020 at 12:31 Approved by: Valerio Reid M.D. on 07/05/2020 at 12:34
--- NOTE | 2020-07-05 02:04 | DI.RAD.S_ITS ---
PROCEDURE: XR CHEST 1V INDICATIONS: altered TECHNIQUE: One view of the chest was acquired. COMPARISON: [facility], CT, CT HEAD/BRAIN WO CON, 07/05/2020, 2:10. [facility], CR, CHEST 2 VIEW, 08/07/2014, 14:04. [facility], CR, CHEST 2 VIEW, 09/17/2013, 16:29. [facility], , CHEST 2 VIEW, 06/04/2017, 13:36. FINDINGS: Surgical changes and devices: Right lower neck clips are seen. Lungs and pleura: Low lung volumes are noted. This causes a crowded appearance to the lung markings and limits evaluation. Mild interstitial prominence can be seen. No large pneumothorax or large pleural effusions are seen. Mediastinum: Mediastinal contours appear normal. Heart size is normal. Bones and chest wall: No suspicious bony lesions. Age-appropriate bony degenerative changes are seen. Overlying soft tissues appear unremarkable. IMPRESSION: Mild interstitial prominence is seen, likely secondary to the incomplete inspiratory result. If clinically appropriate, a short-term followup chest series (with PA and lateral views) performed in deep inspiration is suggested for further evaluation. Note: No significant discrepancy from the preliminary report. Dictated by: Valerio Reid M.D. on 07/05/2020 at 7:18 Approved by: Valerio Reid M.D. on 07/05/2020 at 7:20
[2020-07-05 02:07] VITALS: BP 150/71; PULSE 60; RESP 16; TEMP 36.2; O2SAT 97
[2020-07-05 02:24] LABS: Add Manual Diff / Slide Review NO; Basophils Absolute Auto 100 /uL (0-100); Basophils Percent Auto 1.2 % (0-2); Eosinophils Absolute Auto 1000 /uL (0-450); Eosinophils Percent Auto 12.9 % (2-4); Hematocrit 33.5 % (41-53); Hemoglobin 10.8 g/dL (13.5-17.5); Lymphocytes Absolute Auto 1300 /uL (1100-4500); Lymphocytes Percent Auto 17.8 % (25-40); Mean Corpuscular HGB Conc 32.3 % (30-36); Mean Corpuscular Hemoglobin 26.9 PG (26-34); Mean Corpuscular Volume 83.3 fL (80-100); Monocytes Absolute Auto 600 /uL (0-900); Monocytes Percent Auto 8.5 % (3-14); Neutrophils Absolute Auto 4500 /uL (1500-7000); Neutrophils Percent Auto 59.6 % (50-75); Platelet Count 343 X10^3/uL (150-400); Prothrombin Time 11.6 SECONDS (10.1-12.7); Red Blood Cell Count 4.03 X10^6/uL (4.5-5.9); Red Cell Distribution Width 14.5 % (11.6-14.8); White Blood Cell Count 7.5 X10^3/uL (4.5-11.0)
[2020-07-05 02:27] LABS: Alanine Aminotransferase 15 IU/L (<50); Albumin Globulin Ratio 1.5 (1.0-2.8); Alkaline Phosphatase 125 U/L (38-126); Aspartate Aminotransferase 29 IU/L (17-59); BUN Creatinine Ratio 11.9 (6-22); Bilirubin Total 0.3 mg/dL (0.2-1.3); Blood Urea Nitrogen 8 mg/dL (9-20); Carbon Dioxide 24 mmol/L (22-32); Chloride 96 mmol/L (98-107); Estimated Glomerular Filt Rate > 60.0 mL/min (>60); Globulin 2.7 g/dL (1.7-4.1); Glucose 136 mg/dL (80-110); Potassium 4.5 mmol/L (3.4-5.1); Sodium 129 mmol/L (137-145); Total Protein 6.7 g/dL (6.3-8.2)
[2020-07-05 02:28] LABS: Creatine Kinase 111 U/L (55-170); Lipase 237 U/L (23-300); Magnesium 1.8 mg/dL (1.6-2.3)
[2020-07-05 02:29] LABS: HEMOLYSIS 58 (0-50)
[2020-07-05 02:39] LABS: NT-proBNP (BNP-Adult 18+) 136 pg/mL (<450); Troponin I < 0.012 ng/mL (0.01-0.034)
[2020-07-05 02:43] LABS: CKMB % Relative Index 1.9 % (1.5-5.0); Creatine Kinase MB 2.09 ng/mL (<2.37)
[2020-07-05 02:53] LABS: Lactate (Lactic Acid) 1.3 mmol/L (0.7-2.1)
[2020-07-05 03:00] VITALS: BP 150/71; PULSE 60; RESP 18; O2SAT 96
[2020-07-05] MEDS: SODIUM CHLORIDE 0.9% 1,000 ML 125 ML IV (04:00)
[2020-07-05 04:42] VITALS: BP 144/68; PULSE 55; RESP 18; O2SAT 96
--- NOTE | 2020-07-05 04:43 | DI.MRI.S_ITS ---
PROCEDURE: MR STROKE Pre- and post-contrast brain MRI, non-contrast brain MR angiogram, pre- and postcontrast neck MR angiogram INDICATIONS: Transitory aphasia, assess for CVA TECHNIQUE: Brain: Noncontrast axial T1 spin echo, axial T2 fast spin echo, sagittal and axial FLAIR, coronal T2 fast spin echo, axial gradient echo, axial diffusion and ADC through the brain. After the administration of contrast, axial 3D VIBE of the cranial vasculature and brain. Brain MRA: Non-contrast 3-D time of flight MR angiogram, with multiple qaxrfsl-jwutygvdu-onjzyuzhrs (MIP) reformats performed. Neck MRA: Axial and sagittal TruFISP through the neck. Coronal dynamic MR angiogram during administration of contrast in the arterial and venous phases, with 3-dimenstional nwgnuet-qjksafroe-zvfslyxadj (MIP) reformats constructed from subtraction images. COMPARISON: [facility], [place], US CAROTID DOPPLER BI, 03/08/2019, 14:37. [facility], CT, CT HEAD/BRAIN WO CON, 07/05/2020, 2:10. FINDINGS: Image quality: Diagnostic, with note made of motion artifact. BRAIN: CSF spaces: Ventricles are normal in size and shape. Basal cisterns are patent. No extra-axial fluid collections. Brain: No intracranial bleeds or mass effects. Solomon-white matter interface is normal. Diffusion weighted images show no acute ischemic insults. Brainstem appears normal. Normal intravascular flow voids are present. No abnormal intracranial enhancement. Skull and face: Calvarial marrow signal is normal. Orbits appear normal. Sinuses: Sinuses and mastoids are clear. BRAIN MR ANGIOGRAM: Anterior circulation: Intracranial internal carotid arteries are normal in size and enhancement. The flow within the paired anterior cerebral arteries is normal, with the right anterior cerebral artery dominant to the left. The flow within the middle cerebral arteries is normal and symmetric. The anterior communicating artery is not well seen. No stenoses, occlusions, or aneurysms. Posterior circulation: The visualized portions of the vertebral arteries demonstrate normal caliber, and join to form a normal appearing basilar artery. There is a prominent left posterior communicating artery seen, with an accompanying diminutive left P1 segment. This is attributed to a type origin of the left posterior cerebral artery, which is considered to be a normal developmental variant of typically no clinical consequence. The flow within the posterior cerebral arteries is normal and symmetric. No stenoses, occlusions, or aneurysms. NECK MR ANGIOGRAM: Carotids: Great vessels demonstrate a conventional anatomy as they arise from the aortic arch. The origins of the common carotid arteries appear patent. The calibers and courses of both common carotid arteries are normal. The bifurcation regions demonstrate atherosclerotic irregularity. There is 50-60% narrowing seen involving the left proximal internal carotid artery. No definite stenosis can be seen on the right. The more distal internal carotid arteries demonstrate normal course and caliber. Posterior circulation: The origins of the vertebral arteries demonstrate approximately 50% narrowing on each side. More superior portions of both vertebral arteries demonstrate normal course and caliber, and join to form a normal appearing basilar artery. Miscellaneous: Subclavian arteries appear patent. Pre-contrast images through the neck show no soft tissue abnormalities. IMPRESSION: BRAIN MRI: No findings of acute or subacute infarction can be seen. Note is made of age-appropriate brain parenchymal volume loss and chronic small vessel ischemic changes. No masses or abnormal enhancement can be seen. BRAIN MR ANGIOGRAM: No significant intracranial arterial abnormality is seen. [id number] developmental anomalies are incidentally noted. NECK MR ANGIOGRAM: There is 50-60% narrowing seen involving the left proximal internal carotid artery, which is similar to the prior carotid Doppler ultrasound. Approximately 50% narrowing can be seen involving the origins of the vertebral arteries. Dictated by: Valerio Reid M.D. on 07/05/2020 at 8:04 Approved by: Valerio Reid M.D. on 07/05/2020 at 8:09
--- NOTE | 2020-07-05 04:51 | P.HP_ITS ---
History of Present Illness History of Present Illness Date Patient Seen: 07/05/20 Time Patient Seen: 05:50 Chief complaint: Confused Narrative: Salvatore Jacob is 75-year-old male former smoker with history of COPD, coronary artery disease with sents to the RA in 1999 followedy by brachytherapy in 2001 and a right carotid endarectomy in 2005, hypertension, asthma presented to the ED via EMS for confusion and altered mental status. Patient apparently had a good day yesterday was in his normal state of health even when he went to bed at about 8:30 p.m. Per provider, his told ED staff that she woke up at about 2 or 3 this morning and found him acting ?goofy? and he was slurring his words and not making sense. Patient does not know what happened, he denied having difficulty with speech or word finding. He is very hard of hearing. He denies headache, difficulty swallowing, shortness of breath, chest pain, palpitations or orthopnea, dysuria, diarrhea or constipation or numbing and tingling of his upper and lower extremities. He states that he was discontinued off of hydrochlorothiazide approximately 6 months ago due to changes in his electrolytes by Dr. Matthew and then when he saw Dr. Gibbs, his chemistries were normal and he was put back on to hydrochlorothiazide. He does state that he and his are not vaccinated because he is afraid of the side effects of the vaccination given his comorbidities. He also refers to COVID-19 is the Ethan virus. Patient follows up with Dr. 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 He underwent a complete echo doppler that indicated a normal ejection fraction of 60-65% with no wall motion abnormality and mild aortic valve since sclerosis but no valvular abnormalities and no structural abnormalities. In February of 2019 he underwent a bilateral carotid Doppler with the right side showing less than 50% internal carotid artery stenosis and the left side indicating 50-69% internal carotid artery stenosis and indicated that there had been some interval change compared to the previous one done in 2017. In the ED, CT of the head was reported to me to be negative. His temperature is 98.3?, blood pressure 149/72, heart rate 56, respiratory rate 18, oxygen saturation of 96% on room air, he weighs 80 kg with a BMI of 28.4. WBC is 7.5, RBC 4.03, hemoglobin 10.8, hematocrit 33.5, platelet count 343, sodium is low at 129, potassium 4.5, chloride 96, CO2 24, BUN 8, creatinine 0.67 with a GFR greater than 60, glucose is 136 and hemoglobin A1c of 6.1, liver enzymes are within normal limits, proBNP was normal at 136, lipase was normal at 237, and COVID PCR is negative. Patient History Medical History Allergy (1994) Arthritis (Unknown) Asthma (1994) BPH (benign prostatic hyperplasia) (Unknown) Carotid artery disease (2007) Chickenpox (Unknown) Coronary artery disease (1999) Coronary artery disease involving [place] coronary artery of [place] heart without angina pectoris (05/13/16) Essential hypertension (05/13/16) Hearing loss (Unknown) Hyperlipemia (Unknown) Hypertension (Unknown) Measles (Unknown) Moderate persistent asthma without complication (05/13/16) Mumps (1995) Myocardial infarct (1999) Polio (194) Primary insomnia (05/13/16) Pure hypercholesterolemia (05/13/16) Rheumatic fever (Unknown) Surgical History H/O esophagogastroduodenoscopy (2013) History of angioplasty History of angioplasty History of angioplasty History of right-sided carotid endarterectomy Family & Social History Family History Father Hypertension Mother Hyperlipidemia Sister Age: 77 Hyperlipidemia Safety & Behavioral: Feels Safe in Current Yes Environment Tobacco & Substance use: Smoking Status Former smoker alcohol intake never alcohol intake frequency 0-2 drinks per day Substance Use Type does not use Meds Home Medications and Allergies Home Medications Medication Instructions Recorded Confirmed Type atorvastatin [Lipitor] 40 mg PO #0 08/23/12 02/21/20 History clopidogrel [Plavix] 75 mg PO QDAY #0 08/23/12 02/21/20 History ezetimibe [Zetia] 10 mg PO QDAY #0 08/23/12 02/21/20 History amlodipine 10 mg tablet 10 mg PO DAILY 11/01/18 02/21/20 History aspirin 81 mg tablet,delayed 81 mg PO DAILY 11/01/18 02/21/20 History release beclomethasone dipropionate 40 1 puff INHALATION BID 11/01/18 02/21/20 History mcg/actuation HFA breath activated aerosol fluticasone 250 mcg-salmeterol 50 1 inhalation INHALATION BID 11/01/18 02/21/20 History mcg/dose blistr powdr for inhalation losartan 100 mg tablet 100 mg PO DAILY 11/01/18 02/21/20 History metoprolol tartrate 100 mg tablet 100 mg PO BID tab 03/20/19 02/21/20 History montelukast 10 mg tablet 10 mg PO QPM #90 tab 03/04/20 Rx zolpidem 10 mg tablet 10 mg PO BEDTIME PRN #30 tab 03/25/20 Rx Allergies Allergy/AdvReac Type Severity Reaction Status Date / Time hydrochlorothiazide AdvReac Mild Hyponatremi Verified 03/14/20 11:52 a Review of Systems Review of Systems Narrative: Denies fever, sweats or chills, visual impairment, is very hard of hearing, difficulty swallowing, shortness of breath, chest pain, orthopnea, shortness of breath, nausea or vomiting, dysuria or hematuria, diarrhea or constipation, numbing or tingling of upper or lower extremities, lower extremity swelling, skin lesions or rashes, easy bleeding or bruising. Exam Vital Signs (past 8 hours): - 07/05/20 02:07 07/05/20 03:00 07/05/20 04:42 Temperature 97.1 F L Pulse Rate 60 60 55 L Respiratory Rate 16 18 18 Blood Pressure 150/71 H 150/71 H 144/68 H Pulse Oximetry 97 96 96 Oxygen Delivery Method Room Air Narrative Exam Narrative: Gen: Alert, oriented, overweight 75 y.o. male, HEENT: normocephalic, atraumatic, conjunctiva clear, sclera non-icteric, oral mucosa pink and moist Neck: supple, full ROM, no JVD, trachea is midline Resp: Lungs CTA, non-labored breathing CV: RRR, no murmur or rubs Abd: soft, non-tender, normoactive BTs Skin: no lesions or rashes, dry and intact Neuro: Alert and oriented X 4 w/no focal deficits. Speech clear and coherent. Very hard of hearing Extremities: moves all 4 extremities, is ambulatory, negative Paola?s sign Psyche: normal mood and affect. Objective Labs Result Diagrams: 07/05/20 01:50 07/05/20 01:50 Labs: Laboratory Results - last 24 hr 07/05/20 07/05/20 07/05/20 01:50 01:50 01:50 WBC 7.5 RBC 4.03 L Hgb 10.8 L Hct 33.5 L MCV 83.3 MCH 26.9 MCHC 32.3 RDW 14.5 Plt Count 343 Neut % (Auto) 59.6 Lymph % (Auto) 17.8 L Terrell % (Auto) 8.5 Eos % (Auto) 12.9 H Baso % (Auto) 1.2 Neut # (Auto) 4500 Lymph # (Auto) 1300 Terrell # (Auto) 600 Eos # (Auto) 1000 H Baso # (Auto) 100 PT 11.6 INR 1.0 Sodium 129 L Potassium 4.5 Chloride 96 L Carbon Dioxide 24 BUN 8 L Creatinine 0.67 Estimated GFR > 60.0 BUN/Creatinine Ratio 11.9 Glucose 136 H Lactate Calcium 9.0 Magnesium Total Bilirubin 0.3 AST 29 ALT 15 Alkaline Phosphatase 125 Total Creatine Kinase CK-MB (CK-2) CK-MB (CK-2) Rel Index Troponin I NT-Pro-B Natriuret Pep Total Protein 6.7 Albumin 4.0 Globulin 2.7 Albumin/Globulin Ratio 1.5 Lipase 07/05/20 07/05/20 01:50 02:25 WBC RBC Hgb Hct MCV MCH MCHC RDW Plt Count Neut % (Auto) Lymph % (Auto) Terrell % (Auto) Eos % (Auto) Baso % (Auto) Neut # (Auto) Lymph # (Auto) Terrell # (Auto) Eos # (Auto) Baso # (Auto) PT INR Sodium Potassium Chloride Carbon Dioxide BUN Creatinine Estimated GFR BUN/Creatinine Ratio Glucose Lactate 1.3 Calcium Magnesium 1.8 Total Bilirubin AST ALT Alkaline Phosphatase Total Creatine Kinase 111 CK-MB (CK-2) 2.09 CK-MB (CK-2) Rel Index 1.9 Troponin I < 0.012 NT-Pro-B Natriuret Pep 136 Total Protein Albumin Globulin Albumin/Globulin Ratio Lipase 237 Assessment & Plan Assessment & Plan narrative: Salvatore Jacob will be observed for further evaluation of a TIA. STROKE/TIA Suspected TIA versus stroke, acute, present on admission -Cardiac telemetry -NIH score greater than 5 no -NIH scoring and neuro checks q 0 hours -Dual antiplatelet therapy: Patient is already taking clopidogrel 75 mg p.o. daily and aspirin 81 mg p.o. daily -MR stroke scheduled for today -patient just underwent a complete echo on June 02 so this will not be loganinge mendez. -PT/OT/ST evaluation Mild hyponatremia with a sodium of 129, acute, present on admission -patient's hydrochlorothiazide should be held, and is likely the cause of his sodium loss Hypertension, acute with an admission bp of 150/71, present on admission -Allow for permissive hypertension of of a systolic greater than 170 to allow for brain perfusion HLD -Lipid panel, pending -Atorvastatin 40 mg increased to 80 mg po at bedtime Risk stratification -Fasting lipid panel pending for the morning -A1c 6.1 %, prediabetic VTE prophylaxis: Wells risk score: 0 0 Enoxaparin 40 mg subQ daily Consults: none if patient is still in-house on Tuesday, would advise discussion with Dr. Matthew about his blood pressure medications. Patient is observation status as his stay is not likely to exceed 2 midnights. FEN: saline lock, heart healthy 2 gram sodium diet, BMP and magnesium in the am. Dispo: Probable discharge to home Code Status: Full code as discussed with patient COVID-19 COVID-19 status: Negative Result date/Date tested (Pos, Neg/Pending): 07/05/20 Scores Wells' Criteria for PE Clinical signs and symptoms of DVT: No PE is #1 Dx or equally likely: No Heart rate > 100: No Immobilization at least 3 days or surg in previous 4 weeks: No History of PE or DVT: No Hemoptysis: No Malignancy w/Treatment within 6 months or palliative: No Wells' PE Score total: 0 Quality VTE Deep Vein Thrombosis/Pulmonary Embolism Present on Admission: No MIPS - Admit I confirm the patient?s Advance Care Plan is present, Code status is documented, Surrogate decision maker is in patient?s record [If Yes, STOP here]: Yes
--- NOTE | 2020-07-05 04:54 | DI.US.S_ITS ---
PROCEDURE: US CAROTID DOPPLER BI INDICATIONS: History of RCA enterectomy, stenosis of L ICA TECHNIQUE: Color and pulse Doppler interrogation was performed of both carotid systems, with image documentation and velocity measurements. COMPARISON: [facility], , US CAROTID DOPPLER BI, 03/08/2019, 14:37. [facility], MR, MR STROKE, 07/05/2020, 7:43. [facility], US, CAROTID ARTERY DOPPLER BILAT, 03/10/2016, 13:42. [facility], US, CAROTID ARTERY DOPPLER BILAT, 09/09/2014, 13:24. [facility], US, CAROTID ARTERY DOPPLER BILAT, 08/01/2012, 8:16. FINDINGS: Stenosis calculations are based on SRU (Society of Radiologists in Ultrasound) criteria. Right side: Brachial blood pressure: 151/77 mm Hg. Common carotid artery peak systolic velocity: 72 cm/sec (prior 86 cm/s). Internal carotid artery peak systolic velocity: 111 cm/sec (prior 112 cm/s). Internal carotid artery end diastolic velocity: 22 cm/sec (prior 22 cm/s). External carotid artery peak systolic velocity: Not well seen (prior 110 cm/s). ICA/CCA peak systolic ratio: 1.5 (prior 1.4). Solomon scale imaging description: At least moderate atherosclerotic change can be seen. Percent internal carotid artery stenosis: Less than 50% by velocity criteria. Vertebral artery: Flow direction is antegrade. Left side: Brachial blood pressure: 163/78 mm Hg. Common carotid artery peak systolic velocity: 93 cm/sec (prior 104 cm/s). Internal carotid artery peak systolic velocity: 153 cm/sec (prior 172 cm/s). Internal carotid artery end diastolic velocity: 29 cm/sec (prior 27 cm/s). External carotid artery peak systolic velocity: 131 cm/sec (prior 174 cm/s). ICA/CCA peak systolic ratio: 1.7 (prior 1.7). Solomon scale imaging description: Moderate to prominent atherosclerotic change can be seen, including shadowing calcification. Percent internal carotid artery stenosis: 50-69% by velocity criteria. Vertebral artery: Flow direction is antegrade. IMPRESSION: By velocity criteria, there is a moderate stenosis (between 50 and 69% stenosis) within the left proximal internal carotid artery. The true degree of stenosis is felt most likely to be at the lower end of this range. The imaging appearance is similar to the prior carotid ultrasound. Dictated by: Valerio Reid M.D. on 07/05/2020 at 9:50 Approved by: Valerio Reid M.D. on 07/05/2020 at 9:53
[2020-07-05 05:08] LABS: Hemoglobin A1C% w Est Avg Glu 6.1 % (4.0-6.0)
[2020-07-05 05:15] LABS: COVID19 - ADMIT (NP swab/PCR) Negative (Negative)
[2020-07-05 05:25] VITALS: BP 149/72; PULSE 56; RESP 18; TEMP 36.8; O2SAT 96; BMI 28.4
[2020-07-05] MEDS: SODIUM CHLORIDE 0.9% 1,000 ML 100 ML IV (06:24)
--- NOTE | 2020-07-05 07:30 | PC.NURSE ---
Patient came to the floor at 0515. A&O, no deficits found. Completed all tasks from NIH scale with ease. Has on flannel pants, gold colored band ring, and white long t shirt. States his must have taken the rest of his belongings home. Telemetry initiated, # 2 box applied. IV in right AC started to leak, new IV started in the left forearm, a 20 gauge times 1 attempt. Old site IV canulla discontinued, intact . Pressure applied due to plavix use. Tolerated new site and discontinuation of old site well.
--- NOTE | 2020-07-05 07:48 | DI.ECHO.S_ITS ---
[facility] +---------+ : : [address] : [address] : : : : [id number] : : : : Phone: [phone]---------+ Echocardiogram Report + + :Name: AGUILAR WHITLEY Study Date: 07/05/2020 Height: 66 in : :[facility] ReadingLocation: Weight: 176 lb : : Gender: Male BSA: 1.9 m2 : :: 1945 Age: 75 yrs BP: 150/71 mmHg: :Reason For Study: TIA/CVA : :Ordering Physician: AVERY, : :GONZALEZ Performed By: Denia Mathur : :Referring: GONZALEZ VARELA : + + Interpretation Summary The patient was in sinus bradycardia with heart rates between 54-64 bpm during the exam. The left ventricle is normal in size. The ejection fraction is estimated to be 55-60%. There is no obvious LV thrombus. No significant change in LVEF from the previous study. The right ventricle is normal in size and function. No significant valvular pathology or obvious vegetation seen. Procedure: A two-dimensional transthoracic echocardiogram with color flow and Doppler was performed in limited views only to assess embolic source.. The study quality was technically adequate. Comparison is made with the echocardiogram of 06/02/2020. The patient was in sinus bradycardia with heart rates between 54-64 bpm during the exam. Left Ventricle: The left ventricle is normal in size. Proximal septal thickening is noted. There is no echo evidence for significant left ventricular outflow tract obstruction. There is no thrombus. The ejection fraction is estimated to be 55-60%. There are no focal wall motion abnormalities. Right Ventricle: The right ventricle is normal in size and function. Atria: The left atrium is mildly dilated. Right atrial size is normal. There is no Doppler evidence for an interatrial shunt. Aortic Valve: The aortic valve is trileaflet. The aortic valve is mildly calcified. There is discrete nodular thickening of the non- coronary cusp. There is minimally reduced leaflet mobility. Pericardium/ Pleura There is no pericardial effusion. There is an anterior echo-free space consistent with a fat pad. There is no pleural effusion. MMode/2D Measurements & Calculations LVIDd: 4.3 cm LA A2 area: 21.4 cm2 LVIDs: 2.9 cm LA A4 area: 20.5 cm2 FS: 31.4 % LA length (vol): 5.1 cm IVSd: 1.2 cm LA vol: 73.2 ml LVPWd: 1.00 cm LA vol index: 38.6 ml/m2 LV rubio. diameter/BSA (cm/m^2): 2.3 LV sys. diameter/BSA (cm/m^2): 1.5 RA long axis: 5.5 cm RVD1 (basal): 3.8 cm RA area: 17.1 cm2 TAPSE: 2.0 cm RA vol: 45.7 ml RA : 24.1 ml/m2 IVC diam: 1.7 cm Reading Physician:12:34 PM
[2020-07-05 08:00] VITALS: BP 157/92; PULSE 70; RESP 18; TEMP 36.4; O2SAT 94
[2020-07-05 09:34] LABS: Cholesterol 127 mg/dL (140-199); HDL Cholesterol 46 mg/dL (40-60); LDL Cholesterol Calculated 66 mg/dL (<100); Triglycerides 73 mg/dL (35-150)
[2020-07-05 09:41] LABS: Troponin I < 0.012 ng/mL (0.01-0.034)
[2020-07-05] MEDS: ENOXAPARIN 40 MG/0.4 ML SYRINGE SUBCUT (10:47)
[2020-07-05 11:06] LABS: Bacteria Urine None Seen; RBC Urine None Seen (0-5/HPF); WBC Urine None Seen (0-5/HPF)
[2020-07-05 11:07] LABS: Appearance Urine UA CLEAR; Bilirubin Urine UA NEGATIVE (NEGATIVE); Color Urine UA YELLOW; Glucose Urine UA NEGATIVE (Negative); Ketones Urine UA NEGATIVE (NEGATIVE); Leukocyte Esterase Urine UA NEGATIVE (NEGATIVE); Nitrite Urine UA NEGATIVE (Negative); Occult Blood Urine UA NEGATIVE (Negative); Protein Urine UA NEGATIVE (Negative); Specific Gravity Urine UA 1.015 (1.000-1.035); Urobilinogen Urine UA 0.2 E.U./dL (0.2)
[2020-07-05 11:20] LABS: Culture Indicated Urine Cult Not Indicated; Urine Comments Microscopic Normal
--- NOTE | 2020-07-05 11:29 | ST.IPIE ---
Visit Care Team Role Provider Type Farhad Estrada MD Family Provider Physician Primary Care Provider Specialty: Internal Medicine Address: [address] [place] [address], [address], [place], [address] Email: [email or web address] Kiran Roldan DO Emergency Provider Physician Referring Provider Specialty: Emergency Medicine Address: [address] [place] [address], [id number] Email: [email or web address] AYANA Cheng Admit Provider Physician Attending Provider Specialty: Internal Medicine Address: [address] [place] [address], [id number] Email: [email or web address] Past Medical History (Last Reviewed 07/05/20 @ 05:58 by AYANA Cheng) Allergy (Medical 1994) Arthritis (Medical Unknown) Asthma (Medical 1994) BPH (benign prostatic hyperplasia) (Medical Unknown) Carotid artery disease (Medical 2007) rt. Chickenpox (Medical Unknown) child Coronary artery disease (Medical 1999) Coronary artery disease involving [place] coronary artery of [place] heart without angina pectoris (Medical 05/13/16) Essential hypertension (Medical 05/13/16) Hearing loss (Medical Unknown) lt. total, rt. part Hyperlipemia (Medical Unknown) Hypertension (Medical Unknown) Measles (Medical Unknown) child Moderate persistent asthma without complication (Medical 05/13/16) Mumps (Medical 1995) Myocardial infarct (Medical 1999) Polio (Medical 1946) Primary insomnia (Medical 05/13/16) Pure hypercholesterolemia (Medical 05/13/16) Rheumatic fever (Medical Unknown) child ST IP Initial Evaluation Report CHOP SAW OPERATOR Motor Speech Evaluation Start: 07/05/20 11:15 Freq: Status: Active Protocol: Document 07/05/20 11:15 MG (Rec: 07/05/20 11:29 MG [id number]) Motor Speech Evaluation Session Time Visit Start Time 10:00 Visit Stop Time 10:22 Total Visit Minutes 22 Visit Information Visit Number 1 Setting Setting Acute Care Patient History Source: [employer]). Patient History Patient is 75-year-old male former smoker with history of COPD, coronary artery disease with sents to the RA in 1999 followedy by brachytherapy in 2001 and a right carotid endarectomy in 2005, hypertension, asthma presented to the ED via EMS for confusion and altered mental status. Patient apparently had a good day yesterday was in his normal state of health even when he went to bed at about 8:30 p.m. Per provider, his told ED staff that she woke up at about 2 or 3 this morning and found him acting ?goofy? and he was slurring his words and not making sense. Patient does not know what happened, he denied having difficulty with speech or word finding. He is very hard of hearing. He denies headache, difficulty swallowing, shortness of breath, chest pain, palpitations or orthopnea, dysuria, diarrhea or constipation or numbing and tingling of his upper and lower extremities. 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 He underwent a complete echo doppler that indicated a normal ejection fraction of 60-65% with no wall motion abnormality and mild aortic valve since sclerosis but no valvular abnormalities and no structural abnormalities. In February of 2019 he underwent a bilateral carotid Doppler with the right side showing less than 50% internal carotid artery stenosis and the left side indicating 50-69% internal carotid artery stenosis and indicated that there had been some interval change compared to the previous one done in 2017. In the ED, CT of the head was reported to be negative. Mental Status Mental Status Alert,Responsive,Cooperative Subjective Observations Subjective Pt was observed ambulating around the room with at side. Pt was agreeable to CHOP SAW OPERATOR entering the room and conducting a speech and swallow evaluation. Pt relied on to assist in relaying information as he is very hard of hearing. Oral Motor Lips Function WFL Tongue Function WFL Jaw Function WFL Soft Palate Function WFL Respiration/Phonation Conversation Quality WFL Duration WFL Function WFL Loudness WFL Diadochokinetic Rates P^ Quality WFL T^ Quality WFL K^ Quality WFL P^T^K^ Quality WFL Speech Intelligibility Awareness/Strategy Use Description Other No strategies needed Findings Details Motor Speech Function WFL Type of Impairment No impairment noted at this time. Assessment Details Assessment Through oral motor examination , pt appeared to have oral strength and range of motion that is within functional limits at this time. Pt's speech was 100% intelligible in conversation in an unknown context. Pt reported he is back to baseline and did not have any concerns/questions for the CHOP SAW OPERATOR prior to evaluation ending. CHOP SAW OPERATOR also conducted a swallowing screening in which the pt passed. Per nurse, pt tolerated breakfast with no overt s/sx of aspiration noted . Laryngeal palpation indicated pt presents WFL for swallowing mechanics. Prognosis Rehabilitation Potential Excellent Recommendations Treatment Recommended No Patient/Family Education Education Described results of evaluation,Patient Understanding
[2020-07-05 12:00] VITALS: BP 152/80; PULSE 18; RESP 70; TEMP 36.7; O2SAT 96
--- NOTE | 2020-07-05 12:29 | CM.DANOTE ---
DCP: Case received, EMR reviewed and met with patient. Introduced self and role. Met briefly with patient during team rounds. Was able to obtain information from patient regarding his baseline activity status, as well as his current living situation. DCP assessment completed with information currently available. Patient is a 75 year old male who admitted early this morning to the care of the hospitalist team. PCP: Dr. Estrada. Payer: confirmed: Medicare/BCBS Out of [facility]. Patient came to the hospital via ambulance secondary to having some difficulty with work finding, and slurred words. Patient is here for CVA/Cardiac work up. He has history of COPD. Present diagnoses is TIA. Patient is having echo today as well. Met with patient during team rounds. He was up, ambulating independently with no DME. Confirmed with him that he resides here in [place] with his spouse, Mera. He is alert and oriented, no noted slurred speech upon seeing patient. P: DCP to continue to follow. He will be seeing speech therapist today. Will see how his diagnostics are, and can possibly go home today. Mee Mccormack RN/Recruitment Advertising Manager
[2020-07-05 12:35] LABS: BUN Creatinine Ratio 11.1 (6-22); Blood Urea Nitrogen 6 mg/dL (9-20); Calcium 9.8 mg/dL (8.4-10.2); Carbon Dioxide 24 mmol/L (22-32); Chloride 98 mmol/L (98-107); Estimated Glomerular Filt Rate > 60.0 mL/min (>60); Glucose 126 mg/dL (80-110); HEMOLYSIS < 15 (0-50); Potassium 4.3 mmol/L (3.4-5.1); Sodium 132 mmol/L (137-145)
--- NOTE | 2020-07-05 15:02 | PC.NURSE ---
Addendum entered by Ana Laura Love R.N. 07/05/20 15:20: At 1500 pt escorted by and RN toprivate vehicle with son with all of belongings. He verbalized agreement and understanding of all followup, diet and medication instructions. Original Note: Pt A&Ox3, Clear speech, no drift NIHS 0 this am. denies dizziness, DONOVAN, numbness or weakness on either side. Tongue midline, smile symmetrical. Reports feeling back to his baseline. ST evaluating pt. Carotid duplex, MRI, and echo completed this shift. VSS, afebrile, Sinus arrythmia, SB with AV block /BBB on tele. MD clearing patient for discharge today. Pt anxious to discharge home throughout the day. and son supportive. MD called family to discuss results of tests and increase of lipitor instructions
--- NOTE | 2020-07-05 20:10 | PM.DS.1 ---
History of Present Illness History of Present Illness Chief complaint: Confused Narrative: H and P per Franca Ortiz: Salvatore Jacob is 75-year-old male former smoker with history of COPD, coronary artery disease with sents to the RA in 1999 followedy by brachytherapy in 2001 and a right carotid endarectomy in 2005, hypertension, asthma presented to the ED via EMS for confusion and altered mental status. Patient apparently had a good day yesterday was in his normal state of health even when he went to bed at about 8:30 p.m. Per provider, his told ED staff that she woke up at about 2 or 3 this morning and found him acting ?goofy? and he was slurring his words and not making sense. Patient does not know what happened, he denied having difficulty with speech or word finding. He is very hard of hearing. He denies headache, difficulty swallowing, shortness of breath, chest pain, palpitations or orthopnea, dysuria, diarrhea or constipation or numbing and tingling of his upper and lower extremities. He states that he was discontinued off of hydrochlorothiazide approximately 6 months ago due to changes in his electrolytes by Dr. Matthew and then when he saw Dr. Gibbs, his chemistries were normal and he was put back on to hydrochlorothiazide. He does state that he and his are not vaccinated because he is afraid of the side effects of the vaccination given his comorbidities. He also refers to COVID-19 is the [place] virus. Patient follows up with Dr. Matthew, [employer]. He underwent a complete echo doppler that indicated a normal ejection fraction of 60-65% with no wall motion abnormality and mild aortic valve since sclerosis but no valvular abnormalities and no structural abnormalities. In February of 2019 he underwent a bilateral carotid Doppler with the right side showing less than 50% internal carotid artery stenosis and the left side indicating 50-69% internal carotid artery stenosis and indicated that there had been some interval change compared to the previous one done in 2017. In the ED, CT of the head was reported to me to be negative. His temperature is 98.3?, blood pressure 149/72, heart rate 56, respiratory rate 18, oxygen saturation of 96% on room air, he weighs 80 kg with a BMI of 28.4. WBC is 7.5, RBC 4.03, hemoglobin 10.8, hematocrit 33.5, platelet count 343, sodium is low at 129, potassium 4.5, chloride 96, CO2 24, BUN 8, creatinine 0.67 with a GFR greater than 60, glucose is 136 and hemoglobin A1c of 6.1, liver enzymes are within normal limits, proBNP was normal at 136, lipase was normal at 237, and COVID PCR is negative. Discharge Providers Provider Date of admission: 07/05/20 04:31 Discharge Date: 07/05/20 Primary care physician: Farhad Estrada MD Consults: 07/05/20 04:47 Consult to Speech Therapy Evaluate & Treat Comment: TIA Physician Instructions: Evaluate and treat Discharge provider: Duc Mcclelland MD Summary Hospital Course Discharge Diagnosis: 1. Confusion, possible TIA 2. Hyponatremia 3. Hypertension 4. Hyperlipidemia 5. COPD 6. CAD 7. L carotid artery stenosis Hospital Course: Mr. Jacob was admitted as he had been slurring his words and confused at home. his initial NIH was documented as 4, and per ER note his speech improved in the ER. He was not activated as code stroke given time frame of presentation. In the hospital he was feeling completely back to his baseline. MRI did not show stroke. ECHO showed no clot. Carotid showed 50-69% of his left carotid which appeared stable compared to imaging in 2019. He was on aspirin, plavix, and max dose atorvastatin. His symptoms are not definitive for localization to symptomatic carotid artery disease, however this can also not be ruled out. It was stressed to the patient that he should have vascular follow up within the next week and he was given the phone number of vascular clinic at [facility] to call to set up an urgent appointment. It was stressed to patient that he needs evaluation for possible intervention of his left carotid as he could be at risk of stroke given this presentation. This was also discussed with his son and on the phone. He understands and has the phone number in order to call. His A1c is well controlled and he was recommended to continue good blood pressure control as well. It is possible his low sodium caused his symptoms, and his sodium improved on discharge to 132 from 129. Exam Vital Signs (past 8 hours): Oxygen Delivery Method Room Air Oxygen Flow Rate 0 Narrative Exam Narrative: Gen: Alert, oriented, HEENT: normocephalic, atraumatic, conjunctiva clear, sclera non-icteric, oral mucosa pink and moist Neck: supple, no JVD, trachea is midline Resp: Lungs clear bilaterally, non-labored breathing CV: regular rate and rhythm, no murmur or rubs Abd: soft, non-tender, normoactive BTs Skin: no lesions or rashes, dry and intact Neuro: Alert and oriented X 3 w/no focal deficits. Speech clear and coherent Extremities: moves all 4 extremities, is ambulatory, Psyche: normal mood and affect. Objective Labs Result Diagrams: 07/05/20 01:50 07/05/20 12:10 Labs: Laboratory Results - last 24 hr 07/05/20 07/05/20 07/05/20 01:50 01:50 01:50 WBC 7.5 RBC 4.03 L Hgb 10.8 L Hct 33.5 L MCV 83.3 MCH 26.9 MCHC 32.3 RDW 14.5 Plt Count 343 Neut % (Auto) 59.6 Lymph % (Auto) 17.8 L [place] % (Auto) 8.5 Eos % (Auto) 12.9 H Baso % (Auto) 1.2 Neut # (Auto) 4500 Lymph # (Auto) 1300 [place] # (Auto) 600 Eos # (Auto) 1000 H Baso # (Auto) 100 PT 11.6 INR 1.0 Sodium 129 L Potassium 4.5 Chloride 96 L Carbon Dioxide 24 BUN 8 L Creatinine 0.67 Estimated GFR > 60.0 BUN/Creatinine Ratio 11.9 Glucose 136 H Hemoglobin A1c Lactate Calcium 9.0 Magnesium Total Bilirubin 0.3 AST 29 ALT 15 Alkaline Phosphatase 125 Total Creatine Kinase CK-MB (CK-2) CK-MB (CK-2) Rel Index Troponin I NT-Pro-B Natriuret Pep Total Protein 6.7 Albumin 4.0 Globulin 2.7 Albumin/Globulin Ratio 1.5 Triglycerides Cholesterol LDL Cholesterol, Calc HDL Cholesterol Lipase Urine Color Urine Appearance Urine pH Ur Specific [place] Urine Protein Urine Glucose (UA) Urine Ketones Urine Occult Blood Urine Nitrate Urine Bilirubin Urine Urobilinogen Ur Leukocyte Esterase Urine RBC Urine WBC Urine Bacteria Ur Culture Indicated? Micro UA Comment SARS-CoV-2 (PCR) 07/05/20 07/05/20 07/05/20 01:50 01:50 02:25 WBC RBC Hgb Hct MCV MCH MCHC RDW Plt Count Neut % (Auto) Lymph % (Auto) [place] % (Auto) Eos % (Auto) Baso % (Auto) Neut # (Auto) Lymph # (Auto) [place] # (Auto) Eos # (Auto) Baso # (Auto) PT INR Sodium Potassium Chloride Carbon Dioxide BUN Creatinine Estimated GFR BUN/Creatinine Ratio Glucose Hemoglobin A1c 6.1 H Lactate 1.3 Calcium Magnesium 1.8 Total Bilirubin AST ALT Alkaline Phosphatase Total Creatine Kinase 111 CK-MB (CK-2) 2.09 CK-MB (CK-2) Rel Index 1.9 Troponin I < 0.012 NT-Pro-B Natriuret Pep 136 Total Protein Albumin Globulin Albumin/Globulin Ratio Triglycerides Cholesterol LDL Cholesterol, Calc HDL Cholesterol Lipase 237 Urine Color Urine Appearance Urine pH Ur Specific [place] Urine Protein Urine Glucose (UA) Urine Ketones Urine Occult Blood Urine Nitrate Urine Bilirubin Urine Urobilinogen Ur Leukocyte Esterase Urine RBC Urine WBC Urine Bacteria Ur Culture Indicated? Micro UA Comment SARS-CoV-2 (PCR) 07/05/20 07/05/20 07/05/20 04:13 08:55 08:55 WBC RBC Hgb Hct MCV MCH MCHC RDW Plt Count Neut % (Auto) Lymph % (Auto) [place] % (Auto) Eos % (Auto) Baso % (Auto) Neut # (Auto) Lymph # (Auto) [place] # (Auto) Eos # (Auto) Baso # (Auto) PT INR Sodium Potassium Chloride Carbon Dioxide BUN Creatinine Estimated GFR BUN/Creatinine Ratio Glucose Hemoglobin A1c Lactate Calcium Magnesium Total Bilirubin AST ALT Alkaline Phosphatase Total Creatine Kinase CK-MB (CK-2) CK-MB (CK-2) Rel Index Troponin I < 0.012 NT-Pro-B Natriuret Pep Total Protein Albumin Globulin Albumin/Globulin Ratio Triglycerides 73 Cholesterol 127 L LDL Cholesterol, Calc 66 HDL Cholesterol 46 Lipase Urine Color Urine Appearance Urine pH Ur Specific [place] Urine Protein Urine Glucose (UA) Urine Ketones Urine Occult Blood Urine Nitrate Urine Bilirubin Urine Urobilinogen Ur Leukocyte Esterase Urine RBC Urine WBC Urine Bacteria Ur Culture Indicated? Micro UA Comment SARS-CoV-2 (PCR) Negative 07/05/20 07/05/20 10:00 12:10 WBC RBC Hgb Hct MCV MCH MCHC RDW Plt Count Neut % (Auto) Lymph % (Auto) [place] % (Auto) Eos % (Auto) Baso % (Auto) Neut # (Auto) Lymph # (Auto) [place] # (Auto) Eos # (Auto) Baso # (Auto) PT INR Sodium 132 L Potassium 4.3 Chloride 98 Carbon Dioxide 24 BUN 6 L Creatinine 0.54 L Estimated GFR > 60.0 BUN/Creatinine Ratio 11.1 Glucose 126 H Hemoglobin A1c Lactate Calcium 9.8 Magnesium Total Bilirubin AST ALT Alkaline Phosphatase Total Creatine Kinase CK-MB (CK-2) CK-MB (CK-2) Rel Index Troponin I NT-Pro-B Natriuret Pep Total Protein Albumin Globulin Albumin/Globulin Ratio Triglycerides Cholesterol LDL Cholesterol, Calc HDL Cholesterol Lipase Urine Color Yellow Urine Appearance Clear Urine pH 6.0 Ur Specific [place] 1.015 Urine Protein Negative Urine Glucose (UA) Negative Urine Ketones Negative Urine Occult Blood Negative Urine Nitrate Negative Urine Bilirubin Negative Urine Urobilinogen 0.2 Ur Leukocyte Esterase Negative Urine RBC None seen Urine WBC None seen Urine Bacteria None seen Ur Culture Indicated? Cult not indicated Micro UA Comment Microscopic normal SARS-CoV-2 (PCR) [facility] Medical History Allergy (1994) Arthritis (Unknown) Asthma (1994) BPH (benign prostatic hyperplasia) (Unknown) Carotid artery disease (2007) Chickenpox (Unknown) Coronary artery disease (1999) Coronary artery disease involving torres martinez coronary artery of torres martinez heart without angina pectoris (05/13/16) Essential hypertension (05/13/16) Hearing loss (Unknown) Hyperlipemia (Unknown) Hypertension (Unknown) Measles (Unknown) Moderate persistent asthma without complication (05/13/16) Mumps (1995) Myocardial infarct (1999) Polio (1947) Primary insomnia (05/13/16) Pure hypercholesterolemia (05/13/16) Rheumatic fever (Unknown) Surgical History H/O esophagogastroduodenoscopy (2013) History of angioplasty History of angioplasty History of angioplasty History of right-sided carotid endarterectomy Family History Father Hypertension Mother Hyperlipidemia Sister Age: 77 Hyperlipidemia Social History household members: spouse Smoking Status: Former smoker alcohol intake: never substance use type: does not use Discharge Plan Discharge Plan Patient Disposition: Home Provider Discharge Comment: Mr. Jacob was admitted with confusion and possible TIA. He had no evidence of stroke, he did have blockage on his left carotid artery of 50-69%. This should be evaluated further with vascular clinic. You can call the [facility] vascular clinic at [phone] in [place], or [phone] in [place] and ask to see either cardiology, or a vascular surgeon. This would be to discuss whether or not you need surgery on the left carotid artery. You are on the right medications, please make sure to take your aspirin and plavix daily. Take a total of 80mg of lipitor daily (you can take then in 40mg doses twice if needed), and keep your blood pressure well controlled. Your A1c is mildly high at 6.1, which is prediabetes and please reduce the amount sugars and carbs you eat. Discharge orders & Medications Prescriptions: Continued clopidogrel [Plavix] 75 MG tablet 75 mg PO QDAY Qty: 0 RF: 0 ezetimibe [Zetia] 10 MG tablet 10 mg PO QDAY Qty: 0 RF: 0 metoprolol tartrate 100 mg tablet 100 mg PO BID RF: 0 montelukast 10 mg tablet 10 mg PO QPM Qty: 90 RF: 3 zolpidem [Ambien] 10 mg tablet 10 mg PO BEDTIME PRN (Reason: insomnia) Qty: 30 RF: 5 losartan 100 mg tablet 100 mg PO DAILY RF: 0 amlodipine 10 mg tablet 10 mg PO DAILY RF: 0 fluticasone propion-salmeterol [Wixela Inhub] 250-50 mcg/dose blister with device 1 inhalation INHALATION BID RF: 0 Qvar RediHaler 40 mcg/actuation HFA aerosol breath activated 1 puff INHALATION BID RF: 0 aspirin [Adult Low Dose Aspirin] 81 mg tablet,delayed release (DR/EC) 81 mg PO DAILY RF: 0 Changed atorvastatin [Lipitor] 40 MG tablet 80 mg PO DAILY Qty: 30 RF: 0 Follow up/Referrals: Farhad Estrada MD [Primary Care Provider] - Visit Report/Discharge Packet Instructions: Transient Ischemic Attack Discharge Data Primary Care Provider: Farhad Estrada Attending Provider: Franca Ortiz VTE Deep Vein Thrombosis/Pulmonary Embolism Present on Admission: No MIPS - DC The patient has current or prior documentation of left ventricular ejection fraction (LVEF) less than 40%, or moderate or severely depressed left ventricular systolic function.: No
--- NOTE | 2020-07-15 18:02 | PC.NURSE ---
Late Entry; NS infusion initiated 07/05 at 06:24, stopped per MD discharge order at 14:24.
== END 2020-07-05 15:10 | disposition home or self-care (01) ==
LOC: ED 04:27 → AC 04:31
PROVIDERS: Admitting Provider Nurse Practitioner Family; Emergency Provider Emergency Medicine; Family Provider Student in an Organized Health Care Education/Training Program; PCP Student in an Organized Health Care Education/Training Program; Referring Provider Emergency Medicine; Visit Provider Nurse Practitioner Family
DX: R41.0 Disorientation, unspecified (principal); E87.1 Hypo-osmolality and hyponatremia; I10 Essential (primary) hypertension; E78.5 Hyperlipidemia, unspecified; J44.9 Chronic obstructive pulmonary disease, unspecified; I25.10 Atherosclerotic heart disease of native coronary artery without angina pectoris; Z20.822 Contact with and (suspected) exposure to COVID-19
CPT/HCPCS: 36415; 70450; 70548; 70553; 71045; 80048; 80053; 80061; 81001; 82550; 82553; 83036; 83605; 83690; 83735; 83880; 84484; 85025; 85610; 87040; 87635; 92522; 93005; 93010; 93307; 93880; 96360; 96361; 96372; 99285; C9803; G0378; A9579; J1650

== ENCOUNTER → 2021-04-23 11:04 | Outpatient (CLI) | payer MEDICARE, BC, SELFPAY ==
[2021-04-23 12:40] LABS: Blood Urea Nitrogen 9 mg/dL (9-20); Calcium 9.5 mg/dL (8.4-10.2); Carbon Dioxide 27 mmol/L (22-32); Chloride 100 mmol/L (98-107); Estimated Glomerular Filt Rate > 60.0 mL/min (>60); Glucose 101 mg/dL (80-110); HEMOLYSIS < 15 (0-50); Potassium 4.8 mmol/L (3.4-5.1); Sodium 134 mmol/L (137-145)
== END ==
PROVIDERS: Family Provider Student in an Organized Health Care Education/Training Program; PCP Student in an Organized Health Care Education/Training Program; Referring Provider Student in an Organized Health Care Education/Training Program; Visit Provider Student in an Organized Health Care Education/Training Program
DX: R73.03 Prediabetes (principal); E87.1 Hypo-osmolality and hyponatremia; I10 Essential (primary) hypertension
CPT/HCPCS: 36415; 80048

== ENCOUNTER → 2021-08-25 06:52 | Outpatient (CLI) | payer MEDICARE, BC, SELFPAY ==
[2021-08-25 09:46] LABS: Alanine Aminotransferase 12 IU/L (<50); Albumin 4.1 g/dL (3.5-5.0); Albumin Globulin Ratio 1.6 (1.0-2.8); Alkaline Phosphatase 127 U/L (38-126); Aspartate Aminotransferase 21 IU/L (17-59); BUN Creatinine Ratio 11.8 (6-22); Bilirubin Total 0.4 mg/dL (0.2-1.3); Blood Urea Nitrogen 9 mg/dL (9-20); Calcium 8.9 mg/dL (8.4-10.2); Carbon Dioxide 24 mmol/L (22-32); Chloride 103 mmol/L (98-107); Estimated Glomerular Filt Rate > 60 mL/min (>60); Globulin 2.6 g/dL (1.7-4.1); Glucose 102 mg/dL (80-110); HEMOLYSIS < 15 (0-50); Potassium 4.8 mmol/L (3.4-5.1); Sodium 137 mmol/L (137-145); Total Protein 6.7 g/dL (6.3-8.2)
[2021-08-27 12:29] LABS: Cholesterol, Total 144 mg/dL (100-199); HDL-Cholesterol 55 mg/dL (>39); LDL Particle 1006 nmol/L (<1000); LDL Size 20.7 nm (>20.5); LDL-Cholsterol 77 mg/dL (0-99); LP-IR Score 32 (<=45); Small LDL- Particle 459 nmol/L (<=527); Triglycerides 57 mg/dL (0-149)
== END ==
PROVIDERS: Family Provider Student in an Organized Health Care Education/Training Program; PCP Student in an Organized Health Care Education/Training Program; Referring Provider Specialist; Visit Provider Specialist
DX: I10 Essential (primary) hypertension (principal); E78.2 Mixed hyperlipidemia
CPT/HCPCS: 36415; 80053; 80061; 83704; 83735

== ENCOUNTER → 2022-08-09 06:46 | Outpatient (CLI) | payer MEDICARE, BC, SELFPAY ==
--- NOTE | 2022-08-09 | DI.US.S_ITS ---
PROCEDURE: US CAROTID DOPPLER BI INDICATIONS: HX OF RT SIDED CAROTID ENDARTERECTOMY TECHNIQUE: Color and pulse Doppler interrogation was performed of both carotid systems, with image documentation and velocity measurements. COMPARISON: [facility], , CAROTID DOPPLER BI, 07/05/2020, 9:01. FINDINGS: Stenosis calculations are based on SRU (Society of Radiologists in Ultrasound) criteria. Right side: Brachial blood pressure: 141/71 mm Hg. Common carotid artery peak systolic velocity: 67 cm/sec. Internal carotid artery peak systolic velocity: 116 cm/sec. Internal carotid artery end diastolic velocity: 21 cm/sec. External carotid artery peak systolic velocity: 79 cm/sec. ICA/CCA peak systolic ratio: 1.7 . Solomon scale imaging description: Moderate/heavy plaque Percent internal carotid artery stenosis: Less than 50% . Vertebral artery: Flow direction is antegrade. Left side: Brachial blood pressure: 140/75 mm Hg. Common carotid artery peak systolic velocity: 107 cm/sec. Internal carotid artery peak systolic velocity: 180 cm/sec. Internal carotid artery end diastolic velocity: 42 cm/sec. External carotid artery peak systolic velocity: 146 cm/sec. ICA/CCA peak systolic ratio: 1.6 . Solomon scale imaging description: Moderate/heavy plaque Percent internal carotid artery stenosis: 50-69% . Vertebral artery: Flow direction is antegrade. IMPRESSION: 1. Velocity measurements compatible with 50-69% stenosis of the left internal carotid artery. 2. Less than 50% stenosis of the right internal carotid artery. Dictated by: Winston Toscano M.D. on 08/11/2022 at 10:39 Approved by: Winston Toscano M.D. on 08/11/2022 at 10:46
[2022-08-09 09:34] LABS: Alanine Aminotransferase 22 IU/L (<50); Albumin 4.2 g/dL (3.5-5.0); Albumin Globulin Ratio 1.6 (1.0-2.8); Alkaline Phosphatase 98 U/L (38-126); Aspartate Aminotransferase 25 IU/L (17-59); BUN Creatinine Ratio 8.9 (6-22); Bilirubin Total 0.5 mg/dL (0.2-1.3); Blood Urea Nitrogen 8 mg/dL (9-20); Calcium 9.2 mg/dL (8.4-10.2); Carbon Dioxide 29 mmol/L (22-32); Chloride 101 mmol/L (98-107); Estimated Glomerular Filt Rate > 60 mL/min (>60); Globulin 2.6 g/dL (1.7-4.1); Glucose 99 mg/dL (80-110); HEMOLYSIS < 15 (0-50); Magnesium 2.4 mg/dL (1.6-2.3); Potassium 5.1 mmol/L (3.4-5.1); Sodium 136 mmol/L (137-145); Total Protein 6.8 g/dL (6.3-8.2)
[2022-08-09 16:35] LABS: Hep C Virus Ab w/Reflex Quant NEGATIVE s/c (NEGATIVE)
[2022-08-10 07:10] LABS: x Labcorp Estim. Avg Glu (eAG) 143 mg/dL (.); x Labcorp Hemoglobin A1c 6.6 % (4.8-5.6)
[2022-08-11 08:09] LABS: Cholesterol, Total 111 mg/dL (100-199); HDL-Cholesterol 49 mg/dL (>39); HDL-Particle (Total) 35.7 umol/L (>=30.5); LDL Particle 571 nmol/L (<1000); LDL Size 20.2 nm (>20.5); LDL-Cholsterol 44 mg/dL (0-99); LP-IR Score 56 (<=45); Small LDL- Particle 311 nmol/L (<=527); Triglycerides 92 mg/dL (0-149)
== END ==
PROVIDERS: Family Provider Student in an Organized Health Care Education/Training Program; PCP Student in an Organized Health Care Education/Training Program; Referring Provider Specialist; Visit Provider Specialist
DX: I65.23 Occlusion and stenosis of bilateral carotid arteries (principal); I10 Essential (primary) hypertension; E78.2 Mixed hyperlipidemia; E78.00 Pure hypercholesterolemia, unspecified; F51.01 Primary insomnia; R73.03 Prediabetes; Z11.59 Encounter for screening for other viral diseases; Z98.890 Other specified postprocedural states; Z79.899 Other long term (current) drug therapy
CPT/HCPCS: 80053; 80061; 83036; 83704; 83735; 86803; 93880

== ENCOUNTER → 2023-02-03 11:08 | Outpatient (CLI) | payer MEDICARE, BC, SELFPAY ==
[2022-11-17 13:39] VITALS: BMI 28.4
--- NOTE | 2023-02-03 11:09 | DI.RAD.S_ITS ---
PROCEDURE: XR CHEST 2V INDICATIONS: chest congestion/ chronic cough TECHNIQUE: 2 views of the chest were acquired. COMPARISON: [facility], , XR CHEST 1V, 07/05/2020, 2:49. [facility], , CHEST 2 VIEW, 06/04/2017, 13:36. FINDINGS: Surgical changes and devices: None. Lungs and pleura: Lungs are clear. No pleural effusions or pneumothorax. Mediastinum: Mediastinal contours are normal. Heart size is normal. Bones and chest wall: No suspicious bony abnormalities. Soft tissues appear unremarkable. IMPRESSION: No acute cardiopulmonary abnormality is seen. Dictated by: Armando Sol M.D. on 02/03/2023 at 14:20 Approved by: Armadno Sol M.D. on 02/03/2023 at 14:20
== END ==
PROVIDERS: PCP Family Medicine; Referring Provider Family Medicine; Visit Provider Family Medicine
DX: R05.3 Chronic cough (principal)
CPT/HCPCS: 71046

== ENCOUNTER → 2023-04-01 08:30 | Outpatient (CLI) | payer MEDICARE, BC, SELFPAY ==
[2023-02-09 14:52] VITALS: BMI 28.4
[2023-04-01 09:22] LABS: Alanine Aminotransferase 17 IU/L (<50); Albumin 4.1 g/dL (3.5-5.0); Albumin Globulin Ratio 1.4 (1.0-2.8); Alkaline Phosphatase 92 U/L (38-126); Aspartate Aminotransferase 22 IU/L (17-59); BUN Creatinine Ratio 8.4 (6-22); Bilirubin Total 0.5 mg/dL (0.2-1.3); Blood Urea Nitrogen 7 mg/dL (9-20); Calcium 9.2 mg/dL (8.4-10.2); Carbon Dioxide 27 mmol/L (22-32); Chloride 104 mmol/L (98-107); Cholesterol 134 mg/dL (140-199); Estimated Glomerular Filt Rate > 60 mL/min (>60); Globulin 2.9 g/dL (1.7-4.1); Glucose 103 mg/dL (80-110); HDL Cholesterol 43 mg/dL (40-60); HEMOLYSIS < 15 (0-50); LDL Cholesterol Calculated 61 mg/dL (<100); Magnesium 2.2 mg/dL (1.6-2.3); Potassium 4.9 mmol/L (3.4-5.1); Sodium 139 mmol/L (137-145); Triglycerides 148 mg/dL (35-150)
== END ==
PROVIDERS: PCP Family Medicine; Referring Provider Specialist; Visit Provider Specialist
DX: E78.2 Mixed hyperlipidemia (principal)
CPT/HCPCS: 36415; 80053; 80061; 83735

== ENCOUNTER → 2023-07-14 14:20 | Outpatient (CLI) | payer MEDICARE, BC, SELFPAY ==
[2023-02-09 14:52] VITALS: BMI 28.4
--- NOTE | 2023-07-14 14:21 | DI.CT.S_ITS ---
PROCEDURE: CT CHEST WO CON INDICATIONS: cough , wheezing TECHNIQUE: Noncontrast 5 mm thick sections acquired from the pulmonary apices to the posterior costophrenic angles. 1 mm lung window, 5 mm thick coronal and sagittal and 7 mm axial MIP reformats were then acquired. For radiation dose reduction, the following was used: automated exposure control, adjustment of mA and/or kV according to patient size. COMPARISON: [facility], CR, XR CHEST 2V, 02/03/2023, 11:14. FINDINGS: Image quality: Diagnostic. Lower Neck: No enlarged lymph nodes. Surgical clips noted in the inferior right neck. Thyroid: No thyroid nodules which require sonographic follow up, per consensus guidelines. Axillae: No enlarged lymph nodes. Chest Wall: Unremarkable. Bones: No acute vertebral body compression fractures. Multilevel spondylitic changes throughout the imaged spine. No suspicious osseous lesions. Lungs and Pleura: No pneumothorax or pleural effusions. No focal consolidation. Subsegmental atelectasis and/or scarring noted in the lingula and posterior bilateral lower lobes. There is a 4 mm right middle lobe nodule (204/series 3 close). No septal thickening or nodularity. No pleural thickening or calcified pleural plaques. Heart: Heart size is normal. No pericardial effusion. Multivessel atherosclerotic calcifications of the coronary arteries. Thoracic Vessels: The aorta and pulmonary arteries demonstrate normal size. Atherosclerotic calcifications of the aortic arch are present. Mediastinum and Stephanie: No enlarged lymph nodes. Esophagus: No wall thickening. Small hiatal hernia. Upper Abdomen: Visualized upper abdomen solid organs and bowel loops appear normal. IMPRESSION: CT chest without acute cardiopulmonary abnormalities. A 4 mm right middle lobe nodule. No CT evidence for previous asbestos exposure. Specifically, no suspicious pulmonary nodules or masses. No pleural thickening/pleural plaques. Dictated by: Brett Valente M.D. on 07/14/2023 at 19:29 Approved by: Brett Valente M.D. on 07/14/2023 at 19:35
== END ==
PROVIDERS: PCP Family Medicine; Referring Provider Family Medicine; Visit Provider Family Medicine
DX: R06.2 Wheezing; R05.9 Cough, unspecified; R91.1 Solitary pulmonary nodule; K44.9 Diaphragmatic hernia without obstruction or gangrene; I25.10 Atherosclerotic heart disease of native coronary artery without angina pectoris; I70.0 Atherosclerosis of aorta; Z77.090 Contact with and (suspected) exposure to asbestos
CPT/HCPCS: 71250

== ENCOUNTER → 2023-10-18 07:49 | Outpatient (CLI) | payer MEDICARE, BC, SELFPAY ==
[2023-02-09 14:52] VITALS: BMI 28.4
[2023-10-18 09:09] LABS: Alanine Aminotransferase 18 IU/L (<50); Albumin 4.3 g/dL (3.5-5.0); Albumin Globulin Ratio 1.7 (1.0-2.8); Alkaline Phosphatase 93 U/L (38-126); Aspartate Aminotransferase 23 IU/L (17-59); BUN Creatinine Ratio 14.6 (6-22); Bilirubin Total 0.6 mg/dL (0.2-1.3); Blood Urea Nitrogen 12 mg/dL (9-20); Calcium 9.6 mg/dL (8.4-10.2); Carbon Dioxide 26 mmol/L (22-32); Chloride 102 mmol/L (98-107); Estimated Glomerular Filt Rate > 60 mL/min (>60); Globulin 2.5 g/dL (1.7-4.1); Glucose 91 mg/dL (80-110); HEMOLYSIS < 15 (0-50); Magnesium 2.4 mg/dL (1.6-2.3); Potassium 5.2 mmol/L (3.4-5.1); Sodium 136 mmol/L (137-145); Total Protein 6.8 g/dL (6.3-8.2)
[2023-10-20 06:36] LABS: Cholesterol, Total 117 mg/dL (100-199); HDL-Cholesterol 44 mg/dL (>39); HDL-Particle (Total) 31.8 umol/L (>=30.5); Historical Reading Comment: (.); LDL Particle 709 nmol/L (<1000); LDL Size 20.3 nm (>20.5); LDL-Cholsterol 57 mg/dL (0-99); LP-IR Score 64 (<=45); Small LDL- Particle 459 nmol/L (<=527); Triglycerides 77 mg/dL (0-149)
== END ==
PROVIDERS: PCP Family Medicine; Referring Provider Specialist; Visit Provider Specialist
DX: I10 Essential (primary) hypertension (principal); E78.2 Mixed hyperlipidemia
CPT/HCPCS: 36415; 80053; 80061; 83704; 83735

== ENCOUNTER → 2023-10-20 07:29 | Outpatient (CLI) | payer MEDICARE, BC, SELFPAY ==
[2023-02-09 14:52] VITALS: BMI 28.4
[2023-10-20 08:46] LABS: Hemoglobin A1C% w Est Avg Glu 6.2 % (4.0-6.0)
== END ==
PROVIDERS: PCP Family Medicine; Referring Provider Family Medicine; Visit Provider Family Medicine
DX: R73.09 Other abnormal glucose (principal)
CPT/HCPCS: 36415; 83036

== ENCOUNTER → 2024-06-05 08:41 | Outpatient (CLI) | payer MEDICARE, BC, SELFPAY ==
[2023-02-09 14:52] VITALS: BMI 28.4
[2024-06-05 10:14] LABS: Alanine Aminotransferase 21 IU/L (<50); Albumin 4.5 g/dL (3.5-5.0); Albumin Globulin Ratio 1.7 (1.0-2.8); Alkaline Phosphatase 109 U/L (38-126); Aspartate Aminotransferase 26 IU/L (17-59); BUN Creatinine Ratio 11.8 (6-22); Bilirubin Total 0.5 mg/dL (0.2-1.3); Blood Urea Nitrogen 10 mg/dL (9-20); Calcium 9.4 mg/dL (8.4-10.2); Carbon Dioxide 25 mmol/L (22-32); Chloride 101 mmol/L (98-107); Cholesterol 130 mg/dL (140-199); Estimated Glomerular Filt Rate > 60 mL/min (>60); Globulin 2.6 g/dL (1.7-4.1); Glucose 127 mg/dL (80-110); HDL Cholesterol 45 mg/dL (40-60); HEMOLYSIS < 15 (0-50); LDL Cholesterol Calculated 65 mg/dL (<100); Magnesium 2.2 mg/dL (1.6-2.3); Sodium 133 mmol/L (137-145); Total Protein 7.1 g/dL (6.3-8.2); Triglycerides 100 mg/dL (35-150)
== END ==
PROVIDERS: PCP Family Medicine; Referring Provider Specialist; Visit Provider Specialist
DX: I10 Essential (primary) hypertension (principal); E78.2 Mixed hyperlipidemia
CPT/HCPCS: 36415; 80053; 80061; 83735

== ENCOUNTER → 2024-06-15 12:25 | Outpatient (CLI) | payer MEDICARE, BC, SELFPAY ==
[2023-02-09 14:52] VITALS: BMI 28.4
--- NOTE | 2024-06-15 12:28 | DI.RAD.S_ITS ---
PROCEDURE: XR CHEST 2V INDICATIONS: ongoing cough TECHNIQUE: 2 views of the chest were acquired. COMPARISON: [facility], CR, XR CHEST 2V, 02/03/2023, 11:14. FINDINGS: Surgical changes and devices: None. Lungs and pleura: Lungs are clear. No pleural effusions or pneumothorax. Mediastinum: Mediastinal contours are normal. Heart size is normal. Bones and chest wall: No suspicious bony abnormalities. Soft tissues appear unremarkable. IMPRESSION: No acute cardiopulmonary abnormality is seen. Dictated by: Jamaal Castaneda M.D. on 06/17/2024 at 0:35 Approved by: Jamaal Castaneda M.D. on 06/17/2024 at 0:39
== END ==
PROVIDERS: PCP Family Medicine; Referring Provider Family Medicine; Visit Provider Family Medicine
DX: J45.40 Moderate persistent asthma, uncomplicated (principal); R05.3 Chronic cough; R91.1 Solitary pulmonary nodule
CPT/HCPCS: 71046

== ENCOUNTER → 2024-06-26 13:24 | Outpatient (CLI) | payer MEDICARE, BC, SELFPAY ==
[2023-02-09 14:52] VITALS: BMI 28.4
--- NOTE | 2024-06-26 13:25 | DI.US.S_ITS ---
PROCEDURE: US CAROTID DOPPLER BI INDICATIONS: STENOSIS OF LEFT CAROTID ARTERY. Prior right endarterectomy. TECHNIQUE: Color and pulse Doppler interrogation was performed of both carotid systems, with image documentation and velocity measurements. COMPARISON: [facility], US, US CAROTID DOPPLER BI, 08/09/2022, 9:33. FINDINGS: Stenosis calculations are based on SRU (Society of Radiologists in Ultrasound) criteria. Right side: Brachial blood pressure: 138/69 mm Hg. Common carotid artery peak systolic velocity: 87 cm/sec. Internal carotid artery peak systolic velocity: 100 cm/sec. Previously 78 centimeter/second. Internal carotid artery end diastolic velocity: 30 cm/sec. External carotid artery not well seen ICA/CCA peak systolic ratio: 1.1 . Solomon scale imaging description: Endarterectomy changes. Percent internal carotid artery stenosis: Less than 50% . Vertebral artery: Flow direction is antegrade. Left side: Brachial blood pressure: 133/67 mm Hg. Common carotid artery peak systolic velocity: 94 cm/sec. Internal carotid artery peak systolic velocity: 234 cm/sec. Previously 180 . Internal carotid artery end diastolic velocity: 231 cm/sec. Previously 42. External carotid artery peak systolic velocity: 45 cm/sec. ICA/CCA peak systolic ratio: 2.5 . Solomon scale imaging description: Extensive atherosclerotic plaque Percent internal carotid artery stenosis: Greater than 70% . Vertebral artery: Flow direction is antegrade. IMPRESSION: 1. In the right carotid artery, there is less than 50% stenosis based on peak systolic velocity criteria. Endarterectomy changes noted. 2. In the left carotid artery, there is greater than 70% stenosis based on peak systolic velocity criteria. 3. Antegrade vertebral arteries. Dictated by: Bijan Meek M.D. on 06/27/2024 at 12:41 Approved by: Bijan Meek M.D. on 06/27/2024 at 12:44
== END ==
LOC: US 13:25
PROVIDERS: PCP Family Medicine; Referring Provider Specialist; Visit Provider Specialist
DX: I65.22 Occlusion and stenosis of left carotid artery (principal)
CPT/HCPCS: 93880

== ENCOUNTER → 2024-09-20 10:49 | Outpatient (CLI) | payer MEDICARE, BC, SELFPAY ==
[2023-02-09 14:52] VITALS: BMI 28.4
[2024-09-20 11:16] LABS: Add Manual Diff / Slide Review NO; Hematocrit 41.5 % (41-53); Hemoglobin 14.2 g/dL (13.5-17.5); Lymphocytes Absolute Auto 1400 /uL (1100-4500); Mean Corpuscular HGB Conc 34.2 % (30-36); Mean Corpuscular Hemoglobin 30.7 PG (26-34); Mean Corpuscular Volume 90.0 fL (80-100); Platelet Count 287 X10^3/uL (150-400)
[2024-09-20 12:00] LABS: Hemoglobin A1C% w Est Avg Glu 6.9 % (4.0-6.0)
[2024-09-21 18:43] LABS: Microalbumi Creatinin Ratio Ur 173.0 ug/mg CR (<30)
== END ==
PROVIDERS: PCP Family Medicine; Referring Provider Family Medicine; Visit Provider Family Medicine
DX: R73.03 Prediabetes (principal); Z12.5 Encounter for screening for malignant neoplasm of prostate; I15.9 Secondary hypertension, unspecified; R73.09 Other abnormal glucose
CPT/HCPCS: 36415; 82043; 82570; 83036; 85025; G0103